=== PATIENT | female | born 1950 | race Two or more races ===

== ENCOUNTER 2017-04-20 16:23 | Emergency (ER) | payer MEDICAID, MEDICARE, OTHER ==
[~2017-04-20] VITALS: Ht 154.9 cm; Wt 135.2 kg
[2017-04-20 16:51] VITALS: BP 161/68
== END 2017-04-20 17:18 | disposition home or self-care (01) ==
LOC: ER 16:31
DX: H11.002 Unspecified pterygium of left eye (principal); E11.9 Type 2 diabetes mellitus without complications; I10 Essential (primary) hypertension

== ENCOUNTER 2017-05-20 19:34 | Emergency (ER) | payer OTHER ==
[~2017-05-20] VITALS: Ht 154.9 cm; Wt 132.0 kg
[2017-05-20 19:47] VITALS: BP 182/77
[2017-05-20 20:20] LABS: Basophils # (auto) 0.1 uL; Basophils % (auto) 0.9 % (0.0-2.0); CONDITION Y; Eosinophils # (auto) 0.1 uL; Eosinophils % (auto) 1.5 % (0.0-7.0); Hematocrit 41.4 % (36.0-46.0); Hemoglobin 13.9 g/dL (12.2-16.2); Lymphocytes # (auto) 1.7 uL; Lymphocytes % (auto) 29.1 % (10.0-50.0); Mean Corpuscular Hemoglobin 29.6 pg (28.0-32.0); Mean Corpuscular Hgb Conc. 33.7 g/dL (32.0-36.0); Mean Corpuscular Volume 87.9 fL (80.0-100.0); Mean Platelet Volume 10.3 fL (7.4-10.4); Monocytes # (auto) 0.7 uL; Monocytes % (auto) 12.2 % (0.0-12.0); Neutrophils # (auto) 3.2 uL; Neutrophils % (auto) 56.3 % (37.0-80.0); Platelet Count (auto) 247 10^3/uL (140-450); Red Cell Distribution Width 14.4 % (11.6-16.0); SUSPECT SEE PRINTOUT; White Blood Cell 5.7 10^3/uL (4.4-10.8)
[2017-05-20 20:46] LABS: Albumin 3.7 g/dL (3.4-5.0); Anion Gap 10 (5-15); Aspartate Aminotransferase 34 U/L (15-37); BUN/Creatinine Ratio 20.5; Blood Urea Nitrogen 15 mg/dL (7-18); Calcium 9.1 mg/dL (8.5-10.1); Carbon Dioxide 22 mmol/L (21-32); Chloride 108 mmol/L (98-107); GFR African American 102 mL/min; GFR Non-African American 85 mL/min; Glucose 171 mg/dL (74-106); Magnesium 2.1 mg/dL (1.6-2.6); Potassium 3.7 mmol/L (3.5-5.1); Sodium 140 mmol/L (136-145)
[2017-05-20 20:50] LABS: Alkaline Phosphatase 127 U/L (45-117); Bilirubin, Total 0.4 mg/dL (0.2-1.0); Total Protein 8.4 g/dL (6.4-8.2)
[2017-05-20 21:24] LABS: INR 0.98 (0.9-1.15); Partial Thromboplastin Time 34.3 sec (22.64-33.71); Prothrombin Time 10.7 sec (9.37-12.3)
[2017-05-20 21:51] LABS: B-Type Natriuretic Peptide 60.61 pg/mL (0-100)
[2017-05-20 21:57] LABS: Temperature: 23.5 C (20.0-25.0)
== END 2017-05-20 21:45 | disposition left against medical advice (07) ==
LOC: ER 19:38
DX: R06.02 Shortness of breath (principal); Z53.21 Procedure and treatment not carried out due to patient leaving prior to being seen by health care provider
CPT/HCPCS: 36415; 71020; 80053; 83735; 83880; 84484; 85025; 85610; 85730; 86141; 93005

== ENCOUNTER 2017-05-21 10:42 | Emergency (ER) | payer OTHER, MEDICAID ==
[~2017-05-21] VITALS: Ht 154.9 cm; Wt 132.0 kg
[2017-05-21 11:37] LABS: Basophils # (auto) 0 uL; Basophils % (auto) 0.6 % (0.0-2.0); CONDITION Y; Eosinophils # (auto) 0.1 uL; Eosinophils % (auto) 1.9 % (0.0-7.0); Hematocrit 41.1 % (36.0-46.0); Hemoglobin 13.9 g/dL (12.2-16.2); Lymphocytes # (auto) 1.3 uL; Lymphocytes % (auto) 32.7 % (10.0-50.0); Mean Corpuscular Hemoglobin 29.9 pg (28.0-32.0); Mean Corpuscular Hgb Conc. 33.9 g/dL (32.0-36.0); Mean Corpuscular Volume 88.3 fL (80.0-100.0); Mean Platelet Volume 10.1 fL (7.4-10.4); Monocytes # (auto) 0.6 uL; Monocytes % (auto) 14.3 % (0.0-12.0); Neutrophils # (auto) 2.1 uL; Neutrophils % (auto) 50.5 % (37.0-80.0); Platelet Count (auto) 227 10^3/uL (140-450); Red Cell Distribution Width 14.7 % (11.6-16.0); SUSPECT SEE PRINTOUT; White Blood Cell 4.1 10^3/uL (4.4-10.8)
[2017-05-21 11:45] LABS: Albumin 3.7 g/dL (3.4-5.0); Alkaline Phosphatase 118 U/L (45-117); Anion Gap 8 (5-15); Aspartate Aminotransferase 35 U/L (15-37); BUN/Creatinine Ratio 17.9; Bilirubin, Total 0.5 mg/dL (0.2-1.0); Blood Urea Nitrogen 12 mg/dL (7-18); Carbon Dioxide 22 mmol/L (21-32); Chloride 108 mmol/L (98-107); GFR African American 113 mL/min; GFR Non-African American 93 mL/min; Glucose 178 mg/dL (74-106); Potassium 3.6 mmol/L (3.5-5.1); Sodium 138 mmol/L (136-145); Total Protein 8.2 g/dL (6.4-8.2)
[2017-05-21 12:30] LABS: B-Type Natriuretic Peptide 42.08 pg/mL (0-100)
[2017-05-21 12:41] LABS: Temperature: 24.6 C (20.0-25.0)
[2017-05-21 13:04] VITALS: BP 181/93
[2017-05-21] MEDS ORDERED: cefTRIAXone W LIDOCAINE 1 GM IM IM ONE (13:15)
== END 2017-05-21 14:21 | disposition home or self-care (01) ==
LOC: ER 10:42
DX: J18.9 Pneumonia, unspecified organism (principal); E11.9 Type 2 diabetes mellitus without complications; I10 Essential (primary) hypertension
CPT/HCPCS: 36415; 71020; 80053; 83880; 84484; 85025; 85379; 93005; 96372; 99285; J0696

== ENCOUNTER 2017-12-08 01:19 | Emergency (ER) | payer OTHER, MEDICAID ==
[~2017-12-08] VITALS: Ht 152.4 cm; Wt 131.1 kg
[2017-12-08 02:43] LABS: Basophils # (auto) 0 uL; Basophils % (auto) 0.6 % (0.0-2.0); Eosinophils # (auto) 0.2 uL; Eosinophils % (auto) 3.1 % (0.0-7.0); Hematocrit 39.6 % (36.0-46.0); Hemoglobin 12.9 g/dL (12.2-16.2); Mean Corpuscular Hgb Conc. 32.6 g/dL (32.0-36.0); Mean Corpuscular Volume 85.9 fL (80.0-100.0); Monocytes # (auto) 0.5 uL; Monocytes % (auto) 8.8 % (0.0-12.0); Neutrophils # (auto) 3.4 uL; Neutrophils % (auto) 55.5 % (37.0-80.0); Nucleated Red Blood Cells % 0.3 %; Platelet Count (auto) 246 10^3/uL (140-450); Red Blood Cells 4.61 10^6/uL (4.0-5.20); Red Cell Distribution Width 14.5 % (11.8-14.3); White Blood Cell 6.2 10^3/uL (4.4-10.8)
[2017-12-08 02:44] LABS: Partial Thromboplastin Time 33.6 sec (22.64-33.71); Prothrombin Time 10.9 sec (9.37-12.3)
[2017-12-08 02:45] LABS: Alanine Aminotransferase 23 U/L (13-56); Albumin 3.8 g/dL (3.4-5.0); Anion Gap 7 (5-15); Aspartate Aminotransferase 27 U/L (15-37); BUN/Creatinine Ratio 26.6; Blood Urea Nitrogen 17 mg/dL (7-18); Calcium 10.1 mg/dL (8.5-10.1); Carbon Dioxide 27 mmol/L (21-32); Chloride 105 mmol/L (98-107); GFR African American 119 mL/min; GFR Non-African American 98 mL/min; Glucose 128 mg/dL (74-106); Potassium 4.3 mmol/L (3.5-5.1); Sodium 139 mmol/L (136-145)
[2017-12-08 02:49] LABS: Alkaline Phosphatase 125 U/L (45-117); Bilirubin, Total 0.3 mg/dL (0.2-1.0); Total Protein 8.1 g/dL (6.4-8.2)
[2017-12-08 09:04] VITALS: BP 148/70
== END 2017-12-08 09:08 | disposition home or self-care (01) ==
LOC: ER 01:19
DX: J40 Bronchitis, not specified as acute or chronic (principal); E11.9 Type 2 diabetes mellitus without complications; I10 Essential (primary) hypertension
CPT/HCPCS: 36415; 71046; 80053; 84484; 85025; 85610; 85730; 93005

== ENCOUNTER 2018-04-03 05:15 | Emergency (ER) | payer OTHER, MEDICAID ==
[~2018-04-03] VITALS: Ht 152.4 cm; Wt 135.2 kg
[2018-04-03 06:30] LABS: Albumin 3.8 g/dL (3.4-5.0); BUN/Creatinine Ratio 24.2; Calcium 9.9 mg/dL (8.5-10.1); Potassium 4.8 mmol/L (3.5-5.1)
[2018-04-03 06:33] LABS: Bilirubin, Total 0.7 mg/dL (0.2-1.0); Total Protein 8.2 g/dL (6.4-8.2)
[2018-04-03 06:48] LABS: Basophils # (auto) 0.1 uL; Basophils % (auto) 1.1 % (0.0-2.0); Eosinophils # (auto) 0.2 uL; Eosinophils % (auto) 3.5 % (0.0-7.0); Hematocrit 40.2 % (36.0-46.0); Hemoglobin 13.1 g/dL (12.2-16.2); Lymphocytes # (auto) 1.6 uL; Lymphocytes % (auto) 27.7 % (10.0-50.0); Mean Corpuscular Hemoglobin 29.3 pg (28.0-32.0); Mean Corpuscular Hgb Conc. 32.6 g/dL (32.0-36.0); Mean Corpuscular Volume 90.2 fL (80.0-100.0); Monocytes # (auto) 0.6 uL; Monocytes % (auto) 10.8 % (0.0-12.0); Neutrophils # (auto) 3.2 uL; Neutrophils % (auto) 56.9 % (37.0-80.0); Nucleated Red Blood Cells % 0.1 %; Platelet Count (auto) 206 10^3/uL (140-450); Red Blood Cells 4.46 10^6/uL (4.0-5.20); Red Cell Distribution Width 15.6 % (11.8-14.3); White Blood Cell 5.6 10^3/uL (4.4-10.8)
[2018-04-03] MEDS ORDERED: ONDANSETRON HCL 4 MG/2 ML VIAL IV ONE (07:00)
[2018-04-03] MEDS ORDERED: MORPHINE SULFATE 8mg/ml INJ SDV IV ONE (07:00)
[2018-04-03 08:13] VITALS: BP 154/55
[2018-04-03] MEDS ORDERED: HYDROcodone-ACET 10/325MG TAB PO ONE (08:45)
== END 2018-04-03 09:08 | disposition home or self-care (01) ==
LOC: ER 05:19
DX: I16.0 Hypertensive urgency (principal); J45.909 Unspecified asthma, uncomplicated; E11.9 Type 2 diabetes mellitus without complications; E07.89 Other specified disorders of thyroid; Z90.710 Acquired absence of both cervix and uterus; Z90.89 Acquired absence of other organs
CPT/HCPCS: 36415; 71045; 80053; 83880; 85025; 93005; 96374; 99285; J2405

== ENCOUNTER 2024-05-01 00:53 | Emergency (ER) | payer OTHER, MEDICAID ==
[~2024-05-01] VITALS: Ht 162.6 cm; Wt 132.8 kg
[2024-05-01 01:09] LABS: Basophils # (auto) 0 10 ^3/uL (0-0.2); Basophils % (auto) 0.5 % (0.0-2.0); Eosinophils # (auto) 0.2 10 ^3/uL (0-0.8); Eosinophils % (auto) 3.3 % (0.0-7.0); Hematocrit 43.6 % (36.0-46.0); Hemoglobin 14.3 g/dL (12.2-16.2); Lymphocytes # (auto) 2.2 10 ^3/uL (0.4-5.4); Lymphocytes % (auto) 29.4 % (10.0-50.0); Mean Corpuscular Hemoglobin 29.2 pg (28.0-32.0); Mean Corpuscular Hgb Conc. 32.7 g/dL (32.0-36.0); Mean Corpuscular Volume 89.3 fL (80.0-100.0); Monocytes # (auto) 0.7 10 ^3/uL (0-1.3); Neutrophils # (auto) 4.3 10 ^3/uL (1.6-8.6); Neutrophils % (auto) 57.8 % (37.0-80.0); Nucleated Red Blood Cells % 0.2 %; Red Blood Cells 4.88 10^6/uL (4.0-5.20); Red Cell Distribution Width 14.8 % (11.8-14.3); White Blood Cell 7.4 10^3/uL (4.4-10.8)
[2024-05-01 01:23] LABS: INR 1.02 (0.9-1.15); Partial Thromboplastin Time 34.6 SEC (24.5-34.5); Prothrombin Time 10.8 sec (9.3-11.8)
[2024-05-01 01:28] LABS: Albumin 4.6 g/dL (3.2-4.8); Alkaline Phosphatase 122 U/L (46-116); Anion Gap 7 (5-15); Aspartate Aminotransferase 11 U/L (13-40); BUN/Creatinine Ratio 20.5 (10.0-20.0); Blood Urea Nitrogen 15 mg/dL (9-23); Calcium 11.5 mg/dL (8.7-10.4); Carbon Dioxide 24 mmol/L (20-30); Chloride 107 mmol/L (98-107); Glucose 134 mg/dL (74-106); Magnesium 1.7 mg/dL (1.6-2.6); Sodium 138 mmol/L (136-145); Total Protein 7.7 g/dL (5.7-8.2)
[2024-05-01 01:29] LABS: Alanine Aminotransferase < 9 U/L (7-40)
[2024-05-01 02:06] LABS: Urine Bacteria None Seen /hpf (None Seen)
[2024-05-01 02:18] LABS: Urine Blood Negative /uL (Negative); Urine Clarity Clear (Clear); Urine Color Light-Yellow (Yellow); Urine Mucus FEW (None Seen); Urine Protein, UAD Negative (Negative); Urine Specific Gravity 1.018 (1.001-1.035); Urine Urobilinogen Normal (Negative); Urine WBC 4 /hpf (0 - 5)
[2024-05-01 03:40] VITALS: BP 160/84; PULSE 89; RESP 15; TEMP 97.2; O2SAT 91
== END 2024-05-01 03:46 | disposition home or self-care (01) ==
LOC: ER 00:53
DX: R07.89 Other chest pain (principal); J45.909 Unspecified asthma, uncomplicated; E11.9 Type 2 diabetes mellitus without complications; E78.5 Hyperlipidemia, unspecified; I10 Essential (primary) hypertension; Z90.710 Acquired absence of both cervix and uterus
CPT/HCPCS: 36415; 71045; 80053; 81001; 83735; 83880; 84484; 85025; 85610; 85730; 93005

== ENCOUNTER 2025-05-25 23:59 | Inpatient (IN) | payer OTHER, MEDICAID ==
[~2025-05-25] VITALS: Ht 149.9 cm; Wt 139.8 kg
[2025-05-26] VITALS (11 sets, daily range): BP systolic 93–121; BP diastolic 53–72; PULSE 58–109; RESP 16–22; TEMP 97.7–98.8; O2SAT 92–99
--- NOTE | 2025-05-26 00:24 | ED.PDOC ---
HPI Comments 74 year old female presents to the ED with a chief complaint of chest pain onset 45 minutes prior to ED arrival. Patient states she was sleeping, woke up to use restroom and began experiencing chest pain, described as a pressure sensation, rates pain 8/10. Patient took 3- 81 mg Aspirin tabs with no relief of symptoms. Upon ED arrival, EKG was done, showed patient is in a-fib, RVR with HR 138. PMHx COPD, HTN, HLD, DM, asthma, thyroid disease. Denies palpitations,shortness of breath, dizziness, headache, nausea, vomiting, diarrhea, fever, chills. No other associated symptoms, modifiers, recent injuries or sick contacts present at this time. Chief Complaint: Chest Pain Time Seen by MD: 00:10 Primary Care Provider: DR MARTINEZ Reviewed Notes: Medications, Allergies Allergies: Coded Allergies: NO KNOWN ALLERGIES (Unverified , 04/20/17) Information Source: Patient Mode of Arrival: Ambulatory Severity: Moderate Timing: Minutes Duration: Since onset Prehospital treatment: Other (aspirin 3 - 81 mg tabs) Location: Chest (L) Radiation: No Radiation Quality: Pressure Onset: At Rest Cardiac Risk Factors: Hyperlipidemia, HTN, Diabetes PE Risk Factors: None History of: Similar pain in past Modifying Factors: Nothing Past Medical History PAST MEDICAL HISTORY: Asthma, COPD, DM, Gallstones, High Lipids, HTN, Thyroid Surgical History: Hysterectomy, Thyroidectomy MANAGER POWER History: No Pertinent MANAGER POWER History Family History Family History: Unknown Social History Smoker: Non-Smoker Alcohol: Denies ETOH Use Drugs: Denies Drug Use Lives In: Home Constitutional: denies: chills, diaphoresis, fatigue, fever, malaise, sweats, weakness, others EENTM: denies: blurred vision, double vision, ear bleeding, ear discharge, ear drainage, ear pain, ear ringing, eye pain, eye redness, hearing loss, mouth pain, mouth swelling, nasal discharge, nose bleeding, nose congestion, nose pain, photophobia, tearing, throat pain, throat swelling, voice changes, others Respiratory: denies: cough, hemoptysis, orthopnea, SOB at rest, shortness of breath, SOB with excertion, stridor, wheezing, others Cardiovascular: reports: chest pain; denies: dizzy spells, diaphoresis, Dyspnea on exertion, edema, irregular heart beat, left arm pain, lightheadedness, palpitations, PND, syncope, others Gastrointestinal: denies: abdomen distended, abdominal pain, blood streaked bowels, constipated, diarrhea, dysphagia, difficulty swallowing, hematemesis, melena, nausea, poor appetite, poor fluid intake, rectal bleeding, rectal pain, vomiting, others Genitourinary: denies: abnormal vagina bleeding, burning, dyspareunia, dysuria, flank pain, frequency, hematuria, incontinence, pain, , vagina discharge, urgency, others Neurological: denies: dizziness, fainting, headache, left sided numbness, left sided weakness, numbness, paresthesia, pre-existing deficit, right sided numbness, right sided weakness, seizure, speech problems, tingling, tremors, weakness, others Musculoskeletal: denies: back pain, gout, joint pain, joint swelling, muscle pain, muscle stiffness, neck pain, others Integumetry: denies: bruises, change in color, change in hair/nails, dryness, laceration, lesions, lumps, rash, wounds, others Allergic/Immunocompromised: denies: Difficulty Healing, Frequent Infections, Hives, Itching, others Hematologic/Lymphatic: denies: anemia, blood clots, easy bleeding, easy bruising, swollen glands, others Endocrine: denies: excessive hunger, excessive sweating, excessive thirst, excessive urination, flushing, intolerance to cold, intolerance to heat, unexplained weight gain, unexplained weight loss, others Psychiatric: denies: anxiety, bipolar disorder, depression, hopeless, panic disorder, schizophrenia, sleepless, suicidal, others All Other Systems: Reviewed and Negative Physical Exam General Appearance: Normal HEENT: Normal ENT Inspection, Pharynx Normal, TMs Normal Neck: Full Range of Motion, Non-Tender, Normal, Normal Inspection Respiratory: Chest Non-Tender, Lungs Clear, No Accessory Muscle Use, No Respiratory Distress, Normal Breath Sounds Cardiovascular: No Edema, No JVD, No Murmur, No Gallop, Normal Peripheral Puls es, Regular Rate/Rhythm Breast Exam: Deferred Gastrointestinal: No Organomegaly, Non Tender, No Pulsatile Mass, Normal Bowel Sounds, Soft Genitalia: Deferred Pelvic: Deferred Rectal: Deferred Extremities: No calf tenderness, Normal capillary refill, Normal inspection, Normal range of motion, Non-tender, No pedal edema Musculoskeletal : Apperance: Normal Neurologic: Alert, supervisor histology II-XII nml as Tested, No Motor Deficits, Normal Affect, Normal Mood, No Sensory Deficits Cerebellar Function: Normal Reflexes: Normal Skin: Dry, Normal Color, Warm Lymphatic: No Adenopathy Was a procedure done? Was a procedure done?: No CP Differential Dx Differential Diagnosis: Angina, Hyperthyroidism, Hyperventilation, MAT, SD, PSVT, Pulmonary Embolus, V-Fib, V-Tach, Other X-Ray, Labs, Meds, VS Vital Signs Date Time Temp Pulse Resp B/P (MAP) Pulse Ox O2 Delivery O2 Flow Rate FiO2 05/26/25 02:20 90 23 108/48 (68) 95 05/26/25 02:05 99 18 97/56 05/26/25 01:37 111 111/69 05/26/25 01:35 118 20 111/69 05/26/25 01:29 111 111/69 05/26/25 01:26 92 110/59 05/26/25 01:17 109 20 92 Nasal Cannula* 2 28 05/26/25 01:08 115 20 110/59 05/26/25 00:59 107 05/26/25 00:38 105 20 135/81 05/26/25 00:37 105 135/81 05/26/25 00:29 118 135/81 05/26/25 00:26 105 135/81 05/26/25 00:20 97.6 125 17 135/81 (99) 93 97.6 05/26/25 00:07 97.6 128 18 139/78 93 97.6 05/26/25 00:04 138 Lab Test 05/26/25 01:10 05/26/25 00:19 Range/Units Troponin I High Sensitivity 16 15 </=34 ng/L White Blood Count 8.0 4.4-10.8 10^3/uL Red Blood Count 4.84 4.0-5.20 10^6/uL Hemoglobin 14.6 12.2-16.2 g/dL Hematocrit 43.3 36.0-46.0 % Mean Corpuscular Volume 89.5 80.0-100.0 fL Mean Corpuscular Hemoglobin 30.3 28.0-32.0 pg Mean Corpuscular Hemoglobin Concent 33.8 32.0-36.0 g/dL Red Cell Distribution Width 14.3 11.8-14.3 % Platelet Count 239 140-450 10^3/uL Mean Platelet Volume 9.4 6.9-10.8 fL Neutrophils (%) (Auto) 50.0 37.0-80.0 % Lymphocytes (%) (Auto) 36.9 10.0-50.0 % Monocytes (%) (Auto) 9.5 0.0-12.0 % Eosinophils (%) (Auto) 3.3 0.0-7.0 % Basophils (%) (Auto) 0.3 0.0-2.0 % Neutrophils # (Auto) 4.0 1.6-8.6 10 ^3/uL Lymphocytes # (Auto) 3.0 0.4-5.4 10 ^3/uL Monocytes # (Auto) 0.8 0-1.3 10 ^3/uL Eosinophils # (Auto) 0.3 0-0.8 10 ^3/uL Basophils # (Auto) 0 0-0.2 10 ^3/uL Nucleated Red Blood Cells 0.3 % Prothrombin Time 10.8 9.3-11.8 sec Prothrombin Time INR 1.02 0.9-1.15 Activated Partial Thromboplast Time 35.3 H 24.5-34.5 SEC Sodium Level 139 136-145 mmol/L Potassium Level 4.0 3.5-5.1 mmol/L Chloride Level 105 98-107 mmol/L Carbon Dioxide Level 26 20-31 mmol/L Anion Gap 8 5-15 Blood Urea Nitrogen 15 9-23 mg/dL Creatinine 0.61 0.550-1.02 mg/dL Glomerular Filtration Rate Calc 93 >90 mL/min BUN/Creatinine Ratio 24.6 H 10.0-20.0 Serum Glucose 142 H 74-106 mg/dL Calcium Level 10.8 H 8.7-10.4 mg/dL Total Bilirubin 1.1 H 0.2-1.0 mg/dL Aspartate Amino Transferase (AST) 21 13-40 U/L Alanine Aminotransferase (ALT) < 9 7-40 U/L Alkaline Phosphatase 110 46-116 U/L B-Type Natriuretic Peptide 131.81 0-100 pg/mL Total Protein 7.5 5.7-8.2 g/dL Albumin 4.6 3.2-4.8 g/dL Current Medications Medications (Trade) Dose Ordered Sig/Fahad Route Start Time Stop Time Status Last Admin Metoprolol Tartrate (Lopressor) 5 mg Q5M IV 05/26/25 00:15 05/26/25 00:26 DC 05/26/25 00:37 Morphine Sulfate 4 mg ONCE ONCE IV 05/26/25 00:30 05/26/25 00:31 DC 05/26/25 00:38 Ondansetron HCl (Zofran) 4 mg ONCE ONCE IV 05/26/25 00:30 05/26/25 00:31 DC 05/26/25 00:28 Morphine Sulfate 4 mg ONCE STAT IV 05/26/25 01:29 05/26/25 01:31 DC 05/26/25 01:35 [place] [id number] Ph: [phone] DIAGNOSTIC IMAGING Diagnostic Imaging Report : [id number] Signed PATIENT: JEANCARLOS SHARPACCT: [id number] UNIT: [id number] : 1950 LOC: ER ROOM / BED: / AGE / SEX: 74 / F ADM STATUS: REG ER SERVICE ORDERING PHYSICIAN: GEREMIAS BALDWIN MD PROCEDURE(s): CXRP - CHEST PORTABLE REASON: chest pain ORDER NUMBER(s): [id number], ACCESSION NUMBER(s): [id number] CHEST RADIOGRAPH Indication: chest pain Technique: Single frontal view of the chest was obtained COMPARISON: XY CHEST PORTABLE on DOS: 05/01/24 FINDINGS: Lines and Tubes: None Lungs: Moderate diffuse increased prominence of the pulmonary vasculature. No evidence of focal consolidation. Pleura: No effusion. No pneumothorax. Cardiomediastinal contours: Cardiomegaly. Bones: Unremarkable IMPRESSION: 1. Cardiomegaly and moderate diffuse increased prominence of the pulmonary vasculature. ATED BY: RASHEED STRINGER MD DICTATED DATE/TIME: 05/26/2556 SIGNED BY: RASHEED STRINGER MD SIGNED DATE/TIME: 05/26/2556 CC: Time of 1ST Reevaluation: 00:40 Reevaluation 1ST: Unchanged Patient Education/Counseling: Diagnosis, Treatment, Prognosis Family Education/Counseling: No Family Present Additional Information The following tests were ordered, and results were reviewed by me: TROP -x3, EKG-x3, CBC, XY CHEST, CMP, PTPTT, BNP I reviewed and agreed with the following test results read by other providers: XY CHEST I discussed treatment and results with medical personnel and: patient Comprehensive systems review obtained and negative except for what is stated in the HPI. SEPSIS Sepsis Screen Date sepsis recognized/suspect: May 26, 2025 Time Sepsis recognized/suspect: 0000 Recent Procedure: No On Antibiotic Therapy: No Respiratory Rate >20: No Heart Rate >90: Yes Temp<36 C (96.8 F) or >38.3 C: No SBP <90 or MAP <65 mmHG: No New Acute Mental Status Change: No Is the patient on CPAP, BIPAP,: No Physician Orders Troponin-I Hs (05/26/25 03:01) Electrocardigram (05/26/25 01:01) Electrocardigram (05/26/25 03:01) Chest Portable (05/26/25 00:07) Order Desk Caller (05/26/25 00:07) Ondansetron Hcl (Zofran) (05/26/25 02:45) Vital Signs Date Time Temp Pulse Resp B/P (MAP) Pulse Ox O2 Delivery O2 Flow Rate FiO2 05/26/25 02:20 90 23 108/48 (68) 95 05/26/25 02:05 99 18 97/56 05/26/25 01:37 111 111/69 05/26/25 01:35 118 20 111/69 05/26/25 01:29 111 111/69 05/26/25 01:26 92 110/59 05/26/25 01:17 109 20 92 Nasal Cannula* 2 28 05/26/25 01:08 115 20 110/59 05/26/25 00:59 107 05/26/25 00:38 105 20 135/81 05/26/25 00:37 105 135/81 05/26/25 00:29 118 135/81 05/26/25 00:26 105 135/81 05/26/25 00:20 97.6 125 17 135/81 (99) 93 97.6 05/26/25 00:07 97.6 128 18 139/78 93 97.6 05/26/25 00:04 138 Laboratory Tests Test 05/26/25 00:19 White Blood Count 8.0 10^3/uL (4.4-10.8) Medications Medications Dose Ordered Sig/Fahad Route Start Time Stop Time Status Last Admin Dose Admin Metoprolol Tartrate 5 mg Q5M IV 05/26/25 00:15 05/26/25 00:26 DC 05/26/25 00:37 Morphine Sulfate 4 mg ONCE ONCE IV 05/26/25 00:30 05/26/25 00:31 DC 05/26/25 00:38 Morphine Sulfate 4 mg ONCE STAT IV 05/26/25 01:29 05/26/25 01:31 DC 05/26/25 01:35 Ondansetron HCl 4 mg ONCE ONCE IV 05/26/25 00:30 05/26/25 00:31 DC 05/26/25 00:28 Departure 1 Departure Time of Disposition: 02:42 Impression: Primary Impression: Chest pain Disposition: 01 HOME / SELF CARE / HOMELESS Condition: Stable Discharged With: Self Critical Care Note Critical Care Time?: No Stability Stability form required: No Heart Score Heart Score: Heart Score Response (Comments) Value History Slightly Suspicious 0 EKG Normal 0 Age >65 2 Risk Factors 1 or 2 risk factors 1 Troponin Normal limit 0 Total 3 I personally scribed for GEREMIAS BALDWIN MD ([email or web address]) on 05/26/25 at 00:24. Electronically submitted by Sarah Murphy ([email or web address]). I personally scribed for GEREMIAS BALDWIN MD ([email or web address]) on 05/26/25 at 00:25. Electronically submitted by Sarah Murphy ([email or web address]). I personally scribed for GEREMIAS BALDWIN MD ([email or web address]) on 05/26/25 at 01:04. Electronically submitted by Sarah Murphy ([email or web address]). GEREMIAS BALDWIN MD May 26, 2025 00:24
[2025-05-26] MEDS: METOPROLOL TARTRATE 1MG/1ML-5ML VIAL IV SCH (00:26)
[2025-05-26] MEDS: ONDANSETRON HCL 4 MG/2 ML VIAL IV ONE ×3 (00:28→08:44)
[2025-05-26] MEDS: MORPHINE SULFATE 4 MG/ML SYR/VIAL IV ONE (00:38)
[2025-05-26 00:42] LABS: Hematocrit 43.3 % (36.0-46.0); Hemoglobin 14.6 g/dL (12.2-16.2); Mean Corpuscular Hemoglobin 30.3 pg (28.0-32.0); Mean Corpuscular Volume 89.5 fL (80.0-100.0); Nucleated Red Blood Cells % 0.3 %
[2025-05-26 00:54] LABS: Albumin 4.6 g/dL (3.2-4.8); Alkaline Phosphatase 110 U/L (46-116); Anion Gap 8 (5-15); BUN/Creatinine Ratio 24.6 (10.0-20.0); Bilirubin, Total 1.1 mg/dL (0.2-1.0); Blood Urea Nitrogen 15 mg/dL (9-23); Carbon Dioxide 26 mmol/L (20-31); Chloride 105 mmol/L (98-107); Potassium 4.0 mmol/L (3.5-5.1); Sodium 139 mmol/L (136-145); Total Protein 7.5 g/dL (5.7-8.2)
[2025-05-26 00:55] LABS: INR 1.02 (0.9-1.15); Partial Thromboplastin Time 35.3 SEC (24.5-34.5); Prothrombin Time 10.8 sec (9.3-11.8)
[2025-05-26 00:58] LABS: Alanine Aminotransferase < 9 U/L (7-40); Calcium 10.8 mg/dL (8.7-10.4); Glucose 142 mg/dL (74-106)
--- NOTE | 2025-05-26 00:59 | DVH ---
CHEST RADIOGRAPH Indication: chest pain Technique: Single frontal view of the chest was obtained COMPARISON: XY CHEST PORTABLE on DOS: 05/01/24 FINDINGS: Lines and Tubes: None Lungs: Moderate diffuse increased prominence of the pulmonary vasculature. No evidence of focal cons olidation. Pleura: No effusion. No pneumothorax. Cardiomediastinal contours: Cardiomegaly. Bones: Unremarkable IMPRESSION: 1. Cardiomegaly and moderate diffuse increased prominence of the pulmonary vasculature.
[2025-05-26] MEDS: MORPHINE SULFATE 4 MG/ML SYR/VIAL IV STA (01:35)
--- NOTE | 2025-05-26 02:35 | ECG ---
[facility] Test Date: 2025-05-26 Test Time: 00:59:00 Pat Name: JEANCARLOS SHARP Department: ED Room: [address] [place] [address] Gender: F Power Manager: HAYLEY : 1950 Requested By: GEREMIAS BALDWIN Order Number: [id number] Reading MD: Anthony Khan Measurements Intervals [place] Rate: 107 P: 0 AK: 0 QRS: -11 QRSD: 89 T: 110 QT: 347 QTc: 463 Interpretive Statements Atrial fibrillation LVH with secondary repolarization abnormality Electronically Signed On 05-26-2025 11:21:09 PDT by Anthony Khan Please click the below link to view image of tracing.
--- NOTE | 2025-05-26 03:06 | ECG ---
[facility] Test Date: 2025-05-26 Test Time: 03:00:09 Pat Name: JEANCARLOS SHARP Department: ED Room: [address] [place] [address] Gender: F New Car Inspector: HAYLEY : 1950 Requested By: GEREMIAS BALDWIN Order Number: [id number] Reading MD: Anthony Khan Measurements Intervals [place] Rate: 98 P: 0 MO: 0 QRS: -10 QRSD: 89 T: 118 QT: 347 QTc: 444 Interpretive Statements Atrial fibrillation LVH with secondary repolarization abnormality Electronically Signed On 05-26-2025 11:21:17 PDT by Anthony Khan Please click the below link to view image of tracing.
[2025-05-26] MEDS: PROCHLORPERAZINE EDISYLATE 5 MG/ML 2ML VIAL IV STA (03:31)
[2025-05-26] MEDS: PANTOPRAZOLE 40 MG TAB PO ONE (04:17)
--- NOTE | 2025-05-26 04:23 | DVHHPRES ---
History of Present Illness Resident Creating Document: HEMANT SHOOK RESIDENT History of Present Illness Sonja Weinberg is a 74-year-old female with past medical history of COPD, hypertension, hyperlipidemia, type 2 diabetes, asthma, and hypothyroidism who presents to the EDt with complaints of 4 hrs of the start of sub-sternal chest pain 10/10, pressure like, irradiate to the left and right shoulders, associated with chest palpitations, lightheadedness, SOB, cold sweat and nausea. The patient reported that she had this pain before, on and off for the past week that improved with rest and aspiring 81 mg. Today, the chest pain did not subside with aspirin, this prompt her visit to the ED. Initial EKG noted atrial fibrillation with rapid ventricular response. She received three doses of IV Lopressor 5mg which improved her heart rate, but she continues to feel uncomfortable and remains in atrial fibrillation. Initial cardiac workup shows normal troponin levels. Given her presentation and risk factors, there is concern for acute coronary syndrome. Patient denies fever, chills, syncope, vomit or other symptoms. Cardiovascular: HTN, hyperipidemia Pulmonary: Asthma, COPD Psych: Anxiety Endocrine: Diabetes, Hyperthyroidism, Osteoporosis Past Surgical History: Hysterectomy (with bilateral oophorectomy), Other (Partial Thyroidectomy ) Smoke: Quit (Smoked 1 pack day for 11 years. Patient quit more than 30 years ago) ALCOHOL: none Drugs: None Lives: with Family Review of Systems Constitutional: No: Fever, Chills, Sweats, Weakness, Malaise, Other Eyes: No: Pain, Vision change, Conjunctivae inflammation, Eyelid inflammation, Other, Redness ENT: No: Ear pain, Ear discharge, Nose pain, Nose discharge, Nose congestion, Mouth pain, Mouth swelling, Throat pain, Throat swelling, Other Respiratory: Shortness of breath Cardiovascular: Chest Pain, Palpitations, Lt Headedness Gastrointestinal: No: Nausea, Vomiting, Abdominal Pain, Diarrhea, Constipation, Melena, Hematochezia, Other Genitourinary: No Dysuria, No Frequency, No Incontinence, No Hematuria, No Retention, No Other Musculoskeletal: No: other, neck pain, shoulder pain, arm pain, back pain, hand pain, leg pain, foot pain Skin: No: Rash, Lesions, Jaundice, Bruising, Other Neurological: No: Weakness, Numbness, Incoordination, Change in speech, Confusion, Seizures, Other Allergies: Coded Allergies: NO KNOWN ALLERGIES (Unverified , 04/20/17) Exam Vital Signs Vital Signs Date Time Temp Pulse Resp B/P (MAP) Pulse Ox O2 Delivery O2 Flow Rate FiO2 05/26/25 03:00 98 05/26/25 02:20 23 108/48 (68) 95 05/26/25 01:17 Nasal Cannula* 2 28 05/26/25 00:20 97.6 97.6 General Appearance: Alert, Oriented X3, Cooperative, mild distress HEENT: Atraumatic, PERRLA, Mucous membr. moist/pink Respiratory: Normal air movement, Other (mild bilateral crackles in lung bases ) Cardiovascular: Other (tachycardic, abnormal rhythm) Abdominal: Normal bowel sounds, Soft, No tenderness, No hepatospenomegaly, No masses Extremities: No clubbing, No cyanosis, No edema, Normal pulses, No tenderness/swelling Skin: No rashes, No breakdown, No significant lesion Neuro: Normal speech, Normal tone, Sensation intact Psych/Mental Status: Mental status NL, Mood NL Labs/Xrays Labs Test 05/26/25 03:29 05/26/25 00:19 Range/Units Troponin I High Sensitivity 32 </=34 ng/L White Blood Count 8.0 4.4-10.8 10^3/uL Red Blood Count 4.84 4.0-5.20 10^6/uL Hemoglobin 14.6 12.2-16.2 g/dL Hematocrit 43.3 36.0-46.0 % Mean Corpuscular Volume 89.5 80.0-100.0 fL Mean Corpuscular Hemoglobin 30.3 28.0-32.0 pg Mean Corpuscular Hemoglobin Concent 33.8 32.0-36.0 g/dL Red Cell Distribution Width 14.3 11.8-14.3 % Platelet Count 239 140-450 10^3/uL Mean Platelet Volume 9.4 6.9-10.8 fL Neutrophils (%) (Auto) 50.0 37.0-80.0 % Lymphocytes (%) (Auto) 36.9 10.0-50.0 % Monocytes (%) (Auto) 9.5 0.0-12.0 % Eosinophils (%) (Auto) 3.3 0.0-7.0 % Basophils (%) (Auto) 0.3 0.0-2.0 % Neutrophils # (Auto) 4.0 1.6-8.6 10 ^3/uL Lymphocytes # (Auto) 3.0 0.4-5.4 10 ^3/uL Monocytes # (Auto) 0.8 0-1.3 10 ^3/uL Eosinophils # (Auto) 0.3 0-0.8 10 ^3/uL Basophils # (Auto) 0 0-0.2 10 ^3/uL Nucleated Red Blood Cells 0.3 % Prothrombin Time 10.8 9.3-11.8 sec Prothrombin Time INR 1.02 0.9-1.15 Activated Partial Thromboplast Time 35.3 H 24.5-34.5 SEC Sodium Level 139 136-145 mmol/L Potassium Level 4.0 3.5-5.1 mmol/L Chloride Level 105 98-107 mmol/L Carbon Dioxide Level 26 20-31 mmol/L Anion Gap 8 5-15 Blood Urea Nitrogen 15 9-23 mg/dL Creatinine 0.61 0.550-1.02 mg/dL Glomerular Filtration Rate Calc 93 >90 mL/min BUN/Creatinine Ratio 24.6 H 10.0-20.0 Serum Glucose 142 H 74-106 mg/dL Calcium Level 10.8 H 8.7-10.4 mg/dL Total Bilirubin 1.1 H 0.2-1.0 mg/dL Aspartate Amino Transferase (AST) 21 13-40 U/L Alanine Aminotransferase (ALT) < 9 7-40 U/L Alkaline Phosphatase 110 46-116 U/L B-Type Natriuretic Peptide 131.81 0-100 pg/mL Total Protein 7.5 5.7-8.2 g/dL Albumin 4.6 3.2-4.8 g/dL SEPSIS Sepsis Screen Date sepsis recognized/suspect: May 26, 2025 Time Sepsis recognized/suspect: 0120 Recent Procedure: No On Antibiotic Therapy: No Respiratory Rate >20: No Heart Rate >90: No Temp<36 C (96.8 F) or >38.3 C: No SBP <90 or MAP <65 mmHG: No New Acute Mental Status Change: No Is the patient on CPAP, BIPAP,: No Physician Orders Electrocardigram (05/26/25 03:01) Chest Portable (05/26/25 00:07) Bleach Packer (05/26/25 00:07) Admit (05/26/25 03:44) Code Status (05/26/25 03:44) Vital Signs .PER UNIT PROTOCOL (05/26/25 03:44) Review Orders With Adm.Md (05/26/25 03:44) Maintain Bed Rest (05/26/25 03:44) Notify Md Of Changes From Base (05/26/25 03:44) Advance Directive (05/26/25 03:44) Echo 2d Mode Cardiac Dop (05/26/25 03:44) Urinalysis (05/26/25 03:44) Patient Condition (05/26/25 03:44) Allergies (05/26/25 03:44) Drug Screen (05/26/25 03:44) Morphine Sulfate Injection (05/26/25 03:45) Oxygen By Nasal Cannula (05/26/25 03:44) Stat Ekg For Chest Pain (05/26/25 03:44) Notify Md Of Changes From Base (05/26/25 03:44) Pillowcase Cutter For 24 Hours (05/26/25 03:44) Pantoprazole Tablet (Protonix Tablet) (05/26/25 03:45) * Cardiology Consult (05/26/25 03:44) Vital Signs Date Time Temp Pulse Resp B/P (MAP) Pulse Ox O2 Delivery O2 Flow Rate FiO2 05/26/25 03:00 98 05/26/25 02:20 90 23 108/48 (68) 95 05/26/25 02:05 99 18 97/56 05/26/25 01:37 111 111/69 05/26/25 01:35 118 20 111/69 05/26/25 01:29 111 111/69 05/26/25 01:26 92 110/59 05/26/25 01:17 109 20 92 Nasal Cannula* 2 28 05/26/25 01:08 115 20 110/59 05/26/25 00:59 107 05/26/25 00:38 105 20 135/81 05/26/25 00:37 105 135/81 05/26/25 00:29 118 135/81 05/26/25 00:26 105 135/81 05/26/25 00:20 97.6 125 17 135/81 (99) 93 97.6 05/26/25 00:07 97.6 128 18 139/78 93 97.6 05/26/25 00:04 138 Laboratory Tests Test 05/26/25 00:19 White Blood Count 8.0 10^3/uL (4.4-10.8) Medications Medications Dose Ordered Sig/Fahad Route Start Time Stop Time Status Last Admin Dose Admin Metoprolol Tartrate 5 mg Q5M IV 05/26/25 00:15 05/26/25 00:26 DC 05/26/25 00:37 5 MG Morphine Sulfate 4 mg ONCE ONCE IV 05/26/25 00:30 05/26/25 00:31 DC 05/26/25 00:38 4 MG Morphine Sulfate 4 mg ONCE STAT IV 05/26/25 01:29 05/26/25 01:31 DC 05/26/25 01:35 4 MG Ondansetron HCl 4 mg ONCE ONCE IV 05/26/25 00:30 05/26/25 00:31 DC 05/26/25 00:28 4 MG Ondansetron HCl 4 mg ONCE ONCE IV 05/26/25 02:45 05/26/25 02:46 DC 05/26/25 02:47 4 MG Prochlorperazine Edisylate 5 mg ONCE STAT IV 05/26/25 03:21 05/26/25 03:22 DC 05/26/25 03:31 5 MG Assessment/Plan Assessment/Plan #Atrial Fibrillation with Rapid Ventricular Response (new onset) Telemetry Metoprolol IV [id number] score: 3 Evaluate for antiplatelet agents. #Chest Pain likely due to ACS NSTEMI type 2 Troponins Aspirin ECHO Cardiac consult #Rule out CHF ECHO BNP # Acute on chronic COPD exacerbation #Asthma O2 for nasal canula Ceftriaxone IV Azitromicyn IV #Essential Hypertension Metoprolol IV #Hyperlipidemia Atorvastatin 40mg po #DM2 with hyperglycemia HbA1c #Hypothyroidism TSH Cardiac diet DVT prophylaxis PUD prophylaxis Protonic Goals of care discussed with the patient > 35 min. Discussed plan of care with Dr. Smith Code status: Full code PCP: Cannot recall the doctor's name Plan discussed with: Patient, patients agrees with the plan. Plan discussed with: Patient My Orders Orders - HEMANT SHOOK RESIDENT Procedure Category Date Status Time Admit ADMIT 05/26/25 Transmitted 03:44 Code Status CODE 05/26/25 Transmitted 03:44 Vital Signs [facility] 05/26/25 In Process 03:44 Review Orders With [facility] 05/26/25 In Process Adm. 03:44 Maintain Bed Rest [facility] 05/26/25 In Process 03:44 Notify Md Of Changes [facility] 05/26/25 In Process From Base 03:44 Advance Directive [facility] 05/26/25 In Process 03:44 Echo 2d Mode Cardiac US 05/26/25 Logged DOP 03:44 Urinalysis LAB 05/26/25 Logged 03:44 Patient Condition ORDERS 05/26/25 Transmitted 03:44 Allergies [facility] 05/26/25 In Process 03:44 Drug Screen LAB 05/26/25 Logged 03:44 Morphine Sulfate PHA 05/26/25 Logged Injection 03:45 Oxygen By Nasal RT 05/26/25 Transmitted Cannula 03:44 Stat Ekg For Chest [facility] 05/26/25 In Process Pain 03:44 Notify Md Of Changes [facility] 05/26/25 In Process From Base 03:44 Pillowcase Cutter For [facility] 05/26/25 In Process 24 Hours 03:44 Pantoprazole Tablet [facility] 05/26/25 Logged (Protonix Tablet) 03:45 * Cardiology Consult CONS 05/26/25 Transmitted 03:44 Common Visit Codes: [id number] INP/OBS CARE (HIGH) Secondary Visit Codes: [id number] CARE PLAN 30 MINUTES HEMANT SHOOK RESIDENT May 26, 2025 04:23
[2025-05-26] MEDS: AZITHROMYCIN 500MG/ 250ML 250 ML IV ONE (04:30)
[2025-05-26] MEDS: cefTRIAXone 1GM/50ML D5W 50 ML IV ONE (04:30)
[2025-05-26 05:23] LABS: Urine Protein, UAD 1+ (Negative)
[2025-05-26 05:30] LABS: Opiate Scree,Urine Neg (NEGATIVE)
[2025-05-26 05:34] LABS: Amphetamine Screen, Urine Neg (NEGATIVE); Barbiturate Scree,Urine Neg (NEGATIVE); Benzodiazephine Screen, Urine Neg (NEGATIVE); Cannabinoid Screen, Urine Neg (NEGATIVE); Cocaine Screen, Urine Neg (NEGATIVE); Phencyclidine Screen, Urine Neg (NEGATIVE)
[2025-05-26] MEDS: ONDANSETRON HCL 4 MG/2 ML VIAL IV SCH (06:00)
[2025-05-26] MEDS ORDERED: ATORVASTATIN 20 MG TAB PO ONE (07:45)
--- NOTE | 2025-05-26 09:26 | DVHINCON2 ---
Date Seen: May 26, 2025 Referring Physician MD Doc resident Reason for Consultation Atrial fibrillation History of Present Illness This is a Irish-speaking 74-year-old female patient who presents to the emergency room with chief complaint of chest palpitations and chest pressure since 11:00 p.m. last night. The patient states that she was trying to go to bed last night when suddenly she began to feel pressure and palpitations. She describes the event as unprovoked, chest pressure, constant, midsternal and nonradiating. Associated symptoms include shortness of breath. She came to the emergency room for further evaluation. Initial twelve lead electrocardiogram reveals atrial fibrillation with rapid ventricular response. The patient was given metoprolol 5 mg IV x 3 doses in the emergency room. At the time of assessment, the patient remains in atrial fibrillation, now with a controlled rate.Significant past medical history includes hypertension, dyslipidemia, COPD with home O2, thyroid disease, type 2 diabetes mellitus, and morbid obesity. The patient reports that she does have a car tester in the outpatient setting, but can not recall the name of the car tester at this time. Past Medical History Past medical history reviewed. No other significant than mentioned above. Past Surgical History Hysterectomy Bilateral Oophorectomy Family History Family history reviewed. Social History Patient has an 11 pack-year history, quit smoking over 30 years ago Denies any illicit drug use Denies any alcohol use Allergies: Coded Allergies: NO KNOWN ALLERGIES (Unverified , 04/20/17) Home Meds Home medications reviewed. Current Medications Current Medications Medications (Trade) Dose Ordered Sig/Fahad Route PRN Reason Start Time Stop Time Status Last Admin Metoprolol Tartrate (Lopressor) 5 mg Q5M IV 05/26/25 00:15 05/26/25 00:26 DC 05/26/25 00:37 Morphine Sulfate 4 mg ONCE STAT IV 05/26/25 01:29 05/26/25 01:31 DC 05/26/25 01:35 Prochlorperazine Edisylate (Compazine Inj) 5 mg ONCE STAT IV 05/26/25 03:21 05/26/25 03:22 DC 05/26/25 03:31 Morphine Sulfate 2 mg Q4HPRN PRN IV SEVERE PAIN (7-10 PAIN SCALE) 05/26/25 03:45 Furosemide (Lasix Injection) 40 mg DAILY IV 05/26/25 10:00 Ondansetron HCl (Zofran) 4 mg Q4HR IV 05/26/25 06:00 05/26/25 08:32 DC 05/26/25 06:00 Aspirin 81 mg DAILY PO 05/26/25 10:00 Atorvastatin Calcium (Lipitor) 40 mg HS PO 05/26/25 22:00 Ondansetron HCl (Zofran) 4 mg Q4HR PRN IV NAUSIA 05/26/25 08:30 Review of Systems Constitutional: No symptom reported Ears, Nose, & Throat: No symptom reported Eyes: No symptom reported Neurological: No symptoms reported Pulmonary/Respiratory: Shortness of breath Cardiovascular: Palpitations Gastrointestinal: No symptom reported Genitourinary: No symptom reported Musculoskeletal: No symptom reported Skin: No symptom reported Psychiatric: No symptom reported Endocrine: No symptom reported Hematologic/Lymphatic: No symptom reported Vital Signs Vital Signs Date Time Temp Pulse Resp B/P (MAP) Pulse Ox O2 Delivery O2 Flow Rate FiO2 05/26/25 08:00 93 05/26/25 07:03 18 97/51 (66) 94 05/26/25 01:17 Nasal Cannula* 2 28 05/26/25 00:20 97.6 97.6 Physical Exam General Appearance: Cooperative. Morbidly obese Pulmonary/Respiratory: Clear, bilateral breaths sounds. Cardiovascular/Chest: Irregularly irregular rate and rhythm. Peripheral Pulses: 2+ Radial (R). 2+ Radial (L). 2+ Pedal (R). 2+ Pedal (L) Abdominal Exam: Normal bowel sounds. Ankle Exam: Negative ankle edema Lower extremities: Negative lower extremity edema Neuro/Mental Status: A/OX4, coherent. Thoughts/Psych: Normal thought pattern. Appropriate mood and affect. Good judgment and insight. Appearance: No acute distress. Skin Exam: Normal inspection. Normal color. Warm and dry. Labs/Diagnostic Data Labs Test 05/26/25 07:45 05/26/25 06:27 05/26/25 05:00 05/26/25 03:29 Range/Units POC Glucose 158 H 70-106 mg/dl Urine Color Yellow Yellow Urine Clarity Clear Clear Urine pH 6.0 5.0-9.0 Urine Specific [place] 1.009 1.001-1.035 Urine Protein 1+ H Negative Urine Ketones Negative Negative Urine Blood Negative Negative /uL Urine Nitrite Negative Negative Urine Bilirubin Negative Negative Urine Urobilinogen Normal Negative mg/dL Urine Leukocyte Esterase Negative Negative /uL Urine RBC None seen 0 - 4 /hpf Urine Microscopic WBC 1 0-5 /HPF Urine Squamous Epithelial Cells Few <5 /hpf Urine Bacteria None seen None Seen /hpf Urine Glucose Normal Normal mg/dL Urine Opiates Screen Neg NEGATIVE Urine Fentanyl Screen Neg NEGATIVE Urine Barbiturates Screen Neg NEGATIVE Urine Phencyclidine Screen Neg NEGATIVE Urine Amphetamines Screen Neg NEGATIVE Urine Benzodiazepines Screen Neg NEGATIVE Urine Cocaine Screen Neg NEGATIVE Urine Cannabinoids Screen Neg NEGATIVE Troponin I High Sensitivity 32 </=34 ng/L Test 05/26/25 00:19 Range/Units White Blood Count 8.0 4.4-10.8 10^3/uL Red Blood Count 4.84 4.0-5.20 10^6/uL Hemoglobin 14.6 12.2-16.2 g/dL Hematocrit 43.3 36.0-46.0 % Mean Corpuscular Volume 89.5 80.0-100.0 fL Mean Corpuscular Hemoglobin 30.3 28.0-32.0 pg Mean Corpuscular Hemoglobin Concent 33.8 32.0-36.0 g/dL Red Cell Distribution Width 14.3 11.8-14.3 % Platelet Count 239 140-450 10^3/uL Mean Platelet Volume 9.4 6.9-10.8 fL Neutrophils (%) (Auto) 50.0 37.0-80.0 % Lymphocytes (%) (Auto) 36.9 10.0-50.0 % Monocytes (%) (Auto) 9.5 0.0-12.0 % Eosinophils (%) (Auto) 3.3 0.0-7.0 % Basophils (%) (Auto) 0.3 0.0-2.0 % Neutrophils # (Auto) 4.0 1.6-8.6 10 ^3/uL Lymphocytes # (Auto) 3.0 0.4-5.4 10 ^3/uL Monocytes # (Auto) 0.8 0-1.3 10 ^3/uL Eosinophils # (Auto) 0.3 0-0.8 10 ^3/uL Basophils # (Auto) 0 0-0.2 10 ^3/uL Nucleated Red Blood Cells 0.3 % Prothrombin Time 10.8 9.3-11.8 sec Prothrombin Time INR 1.02 0.9-1.15 Activated Partial Thromboplast Time 35.3 H 24.5-34.5 SEC Sodium Level 139 136-145 mmol/L Potassium Level 4.0 3.5-5.1 mmol/L Chloride Level 105 98-107 mmol/L Carbon Dioxide Level 26 20-31 mmol/L Anion Gap 8 5-15 Blood Urea Nitrogen 15 9-23 mg/dL Creatinine 0.61 0.550-1.02 mg/dL Glomerular Filtration Rate Calc 93 >90 mL/min BUN/Creatinine Ratio 24.6 H 10.0-20.0 Serum Glucose 142 H 74-106 mg/dL Calcium Level 10.8 H 8.7-10.4 mg/dL Total Bilirubin 1.1 H 0.2-1.0 mg/dL Aspartate Amino Transferase (AST) 21 13-40 U/L Alanine Aminotransferase (ALT) < 9 7-40 U/L Alkaline Phosphatase 110 46-116 U/L B-Type Natriuretic Peptide 131.81 0-100 pg/mL Total Protein 7.5 5.7-8.2 g/dL Albumin 4.6 3.2-4.8 g/dL Assessment Atrial fibrillation with rapid ventricular response, newly diagnosed Rule out structural heart disease Hypertension Dyslipidemia COPD with home O2 Type 2 diabetes mellitus Thyroid disease Morbid obesity Plan/Recommendation We will continue with the following plan/recommendations (Dr. Khan): * Transthoracic echocardiogram to evaluate cardiac function * ?[id number] VASc score: 5 points, HAS-BLED score: 1 point * Initiate therapeutic Lovenox while inpatient, transition to NOAC prior to discharge * Beta-isabel for rate control * Monitor and replete electrolytes as needed, keep potassium greater than four and magnesium greater than two * Close Cardiac surveillance At the time of assessment, the patient is not experiencing any cardiac symptoms. The patient does however mention some nausea. Thank you for allowing us to care for this patient. Please call with any questions or concerns. Critical care time spent: 44 minutes This medical document was created using an electronic medical record system with voice recognition software and computerized dictation system. Although this document has been carefully reviewed, there might still be some phonetic and typographical errors. Occasional wrong-word or ``sound-alike substitutions may have occurred due to the inherent limitations of voice recognition software. These areas are purely typographical due to imperfections of the software programs and do not reflect any compromise in the patient's medical care. Please read the chart carefully and recognize, using context, where these substitutions have occurred. Plan discussed with: Patient NYHA Physical activity limitations: NA Date of Service: May 26, 2025 Billing Provider: LUCRECIA BLUE Cardiology Common Codes: [id number] INP/OBS CARE (High) Cardiology Consultation Codes: [id number] CONSULT <45MIN LCURECIA BLUE May 26, 2025 09:26
[2025-05-26 09:58] LABS: COVID19 ANTIGEN SOFIA FIA NEGATIVE (NEGATIVE)
[2025-05-26 10:06] LABS: Triglycerides 121.0 mg/dL (< 150)
--- NOTE | 2025-05-26 10:06 | DVHPNRES ---
Progress Note Date Seen: May 26, 2025 Resident Creating Document: MIRANDA BACH RESIDENT Medical Necessity Reason Pt with a Central, PICC or Fol: No Subjective Review of Systems Sonja Cook is a 74-year-old female with past medical history of COPD, hypertension, hyperlipidemia, type 2 diabetes, asthma, and hypothyroidism presented to the ER with complaints of 4 hrs of sub-sternal chest pain 10/10, pressure like, which radiated to the left and right shoulders, associated with chest palpitations, lightheadedness, cold sweat and nausea. Also complained of associated shortness of breaths and difficulty breathing, which increase lying position. The patient reported that she had this pain before, on and off for the past week that improved with rest and aspiring 81 mg. The chest pain did not subside with aspirin, which prompted her visit to the ER. She denied fever, chills, syncope, vomit or other symptoms. On arrival, she had tachycardia, hypotension, tachypnea. Her initial labs show borderline increased calcium, total bilirubin, APTT. Her urine analysis is WNL and toxicology screen is negative. CXR shows cardiomegaly, moderate diffuse increased prominence of pulmonary vascular. EKG shows atrial fibrillation, left ventricular hypertrophy. Cardiac workup revealed normal troponin levels. She received three doses of IV Lopressor 5mg which improved her heart rate. ROS: Constitutional: Apparent distress, complained of chills. HEENT: Progressive reduction in vision. Respiratory: Shortness of breath and difficulty in breathing Cardiovascular: Chest pain, radiating to right shoulder GI: Complains of nausea, vomiting. Musculoskeletal: Denies myalgias and joint pain Skin: Denies rash and pruritus. Neurological: Denies dizziness, headache or hearing problems She was examined at bedside today. Her vitals show DE 99, blood pressure 97/51. Continues to complain of chest pain & difficulty in breathing. Associated with nausea and vomiting. She is in apparent discomfort. Cardiology consulted. Objective vital signs Vital Sign Date Time Temp Pulse Resp B/P (MAP) Pulse Ox O2 Delivery O2 Flow Rate FiO2 05/26/25 08:00 93 05/26/25 08:00 97.7 19 100/36 (57) 94 97.7 05/26/25 08:00 Nasal Cannula* 2 28 Total Intake and Output 05/25/25 05/25/25 05/26/25 15:00 23:00 07:00 Output Total 400 ml Balance -400 ml medications Current Medications Medications Dose Ordered Sig/Fahad Route Start Time Stop Time Status Last Admin Dose Admin Morphine Sulfate 2 mg Q4HPRN PRN IV 05/26/25 03:45 Furosemide 40 mg DAILY IV 05/26/25 10:00 Aspirin 81 mg DAILY PO 05/26/25 10:00 Atorvastatin Calcium 40 mg HS PO 05/26/25 22:00 Ondansetron HCl 4 mg Q4HR PRN IV 05/26/25 08:30 Examination General: Apparent discomfort. Patient alert and oriented in person, place and time. Patient following commands. HEENT: Normocephalic, atraumatic, moist mucous membranes Respiratory/pulmonary: Bilateral crackles on auscultation. Cardiovascular: Distant heart sounds. Abdomen: Abdomen nondistended, there is no pain to palpation in any of the abdominal quadrants, no palpable masses. Extremities: There is no peripheral edema present at the lower extremities. Skin: No rashes or pruritus, there is no sacral edema present at this time. Neurological: Intact cranial nerves with no focal neurologic deficits laboratory and microbiology Laboratory Tests 05/26/25 00:19 Test 05/26/25 00:19 Range/Units Serum Glucose 142 H 74-106 mg/dL Problem List/Assessment/Plan Problem List/Assessment/Plan Atrial Fibrillation with Rapid Ventricular Response (new onset) * Telemetry * Started Metoprolol IV * [id number] score: 3 * Started Lovenox Chest Pain likely due to ACS NSTEMI type 2 Systolic/ Diastolic congestive heart failure, exacerbation, possible * Troponins WNL * Aspirin given * ECHO ordered * Cardiology consulted * ECHO * BNP Acute hypoxic respiratory failure due to Acute on chronic COPD exacerbation, possible Asthma exacerbation, possible * O2 for nasal canula * Influenza and COVID-19 tests ordered * Ceftriaxone & Azitromicyn IV * Med neb started Essential Hypertension * Metoprolol IV Hyperlipidemia * Atorvastatin 40mg po Diabetes mellitus * Hyperglycemia OA * HbA1c * Will continue monitoring and managing History of Hypothyroidism * TSH DIET: Cardiac DVT PROPHYLAXIS: Lovenox GI PROPHYLAXIS: Protonics CODE STATUS: Goals of care discussed with patient at bedside for more than 25 minutes. Full code DISPOSITION: Med/surge Patient's status and plan discussed with the patient. Case discussed with Dr. Puri. Plan discussed with: Patient Date of Service: May 26, 2025 Billing Provider: LOIS PURI MD Common Visit Codes: [id number] INP/OBS CARE(HIGH) MIRANDA BACH RESIDENT May 26, 2025 10:06 LOIS PURI MD May 26, 2025 14:09
[2025-05-26 10:07] LABS: Magnesium 2.0 mg/dL (1.6-2.6)
[2025-05-26 10:08] LABS: Cholesterol 129.0 mg/dL (< 200); HDL Cholesterol 57.0 mg/dL (40-59)
[2025-05-26] MEDS: FUROSEMIDE 40 MG/4 ML VIAL IV SCH (10:48)
[2025-05-26] MEDS: IPRATROPIUM BROM 0.5 MG/2.5ML INH SOL ONE (11:49)
[2025-05-26] MEDS: IPRATROPIUM BROM 0.5 MG/2.5ML INH SOL NEB SCH (11:49)
[2025-05-26] MEDS: ENOXAPARIN SOD 100 MG/1 ML SYRINGE SC ONE (12:02)
[2025-05-26] MEDS: ONDANSETRON HCL 4 MG/2 ML VIAL IV PRN (13:50)
[2025-05-26] MEDS ORDERED: ASPI81CH59 PO (16:47)
[2025-05-26] MEDS ORDERED: TRAM50TA2 PO (16:47)
[2025-05-26] MEDS ORDERED: METF-370 PO (16:47)
[2025-05-26] MEDS ORDERED: METO25TA93 PO (16:47)
[2025-05-26] MEDS: ATORVASTATIN 20 MG TAB PO SCH (21:25)
[2025-05-26] MEDS: ENOXAPARIN SOD 100 MG/1 ML SYRINGE SC SCH (21:26)
[2025-05-26] MEDS ORDERED: METOPROLOL TARTRATE 25 MG TAB PO SCH (22:00)
[2025-05-27] VITALS (14 sets, daily range): BP systolic 92–126; BP diastolic 51–76; PULSE 64–124; RESP 16–19; TEMP 97.9–98.8; O2SAT 94–100
[2025-05-27] MEDS: MORPHINE SULFATE INJ 2 MG/ml SYRG IV PRN (00:52)
[2025-05-27 07:41] LABS: Chloride 104 mmol/L (98-107); Potassium 4.2 mmol/L (3.5-5.1); Sodium 138 mmol/L (136-145)
[2025-05-27 07:42] LABS: Anion Gap 7 (5-15); Carbon Dioxide 27 mmol/L (20-31)
[2025-05-27 07:43] LABS: Calcium 11.0 mg/dL (8.7-10.4)
[2025-05-27 07:46] LABS: Hematocrit 40.5 % (36.0-46.0); Hemoglobin 13.7 g/dL (12.2-16.2); Mean Corpuscular Hemoglobin 30.1 pg (28.0-32.0); Mean Corpuscular Volume 89.1 fL (80.0-100.0); Nucleated Red Blood Cells % 0.2 %
[2025-05-27 07:47] LABS: BUN/Creatinine Ratio 28.0 (10.0-20.0)
[2025-05-27 07:48] LABS: Blood Urea Nitrogen 28 mg/dL (9-23); Glucose 133 mg/dL (74-106); Magnesium 2.0 mg/dL (1.6-2.6)
[2025-05-27] MEDS: cefTRIAXone 1GM/50ML D5W 50 ML IV SCH (09:49)
[2025-05-27] MEDS: METOPROLOL TARTRATE 25 MG TAB PO SCH (09:53)
[2025-05-27] MEDS ORDERED: EMPAGLIFLOZIN 10 MG TAB PO SCH (10:00)
--- NOTE | 2025-05-27 10:50 | DVHPNRES ---
Progress Note Date Seen: May 27, 2025 Resident Creating Document: MIRANDA BACH RESIDENT Medical Necessity Reason Pt with a Central, PICC or Fol: No Subjective Review of Systems Sonja Cook is a 74-year-old female with past medical history of COPD, hypertension, hyperlipidemia, type 2 diabetes, asthma, and hypothyroidism presented to the ER with complaints of 4 hrs of sub-sternal chest pain 10/10, pressure like, which radiated to the left and right shoulders, associated with chest palpitations, lightheadedness, cold sweat and nausea. Also complained of associated shortness of breaths and difficulty breathing, which increase lying position. The patient reported that she had this pain before, on and off for the past week that improved with rest and aspiring 81 mg. The chest pain did not subside with aspirin, which prompted her visit to the ER. She denied fever, chills, syncope, vomit or other symptoms. On arrival, she had tachycardia, hypotension, tachypnea. Her initial labs show borderline increased calcium, total bilirubin, APTT. Her urine analysis is WNL and toxicology screen is negative. CXR shows cardiomegaly, moderate diffuse increased prominence of pulmonary vascular. EKG shows atrial fibrillation, left ventricular hypertrophy. Cardiac workup revealed normal troponin levels. She received three doses of IV Lopressor 5mg which improved her heart rate. ROS: Constitutional: Apparent distress, complained of chills. HEENT: Progressive reduction in vision. Respiratory: Shortness of breath and difficulty in breathing Cardiovascular: Chest pain, radiating to right shoulder GI: Complains of nausea, vomiting. Musculoskeletal: Denies myalgias and joint pain Skin: Denies rash and pruritus. Neurological: Denies dizziness, headache or hearing problems She was examined at bedside today. Hemodynamically stable. Reports her chest pain and difficulty in breathing has reduced now. Continues to complain of nausea. Cardiology on board. Awaiting echo report. We will do a wean off trial as she was not on home oxygen and continue to monitor and manage. Patient is Persian-speaking; the patient's sister helped with translation Objective vital signs Vital Sign Date Time Temp Pulse Resp B/P (MAP) Pulse Ox O2 Delivery O2 Flow Rate FiO2 05/27/25 09:53 82 120/72 05/27/25 09:00 97.9 18 96 97.9 05/27/25 06:01 Nasal Cannula 3.0 05/27/25 06:01 32 Total Intake and Output 05/26/25 05/26/25 05/27/25 15:00 23:00 07:00 Intake Total 0 ml 400 ml Output Total 300 ml Balance 0 ml 100 ml medications Current Medications Medications Dose Ordered Sig/Fahad Route Start Time Stop Time Status Last Admin Dose Admin Morphine Sulfate 2 mg Q4HPRN PRN IV 05/26/25 03:45 05/27/25 00:52 2 MG Furosemide 40 mg DAILY IV 05/26/25 10:00 05/27/25 09:52 40 MG Aspirin 81 mg DAILY PO 05/26/25 10:00 05/27/25 09:53 81 MG Atorvastatin Calcium 40 mg HS PO 05/26/25 22:00 05/26/25 21:25 40 MG Ondansetron HCl 4 mg Q4HR PRN IV 05/26/25 08:30 05/27/25 01:00 4 MG Ceftriaxone Sodium 50 ml @ 100 mls/hr DAILY@09 IV 05/27/25 09:00 05/27/25 09:49 100 MLS/HR Ipratropium [place] 0.5 mg Q6HWA NEB 05/26/25 12:00 05/27/25 06:01 0.5 MG Enoxaparin Sodium 140 mg Q12HR SC 05/26/25 22:00 05/27/25 09:52 140 MG Metoprolol Tartrate 25 mg BID PO 05/27/25 10:00 05/27/25 09:53 25 MG Examination General: Patient alert and oriented in person, place and time. Patient following commands. HEENT: Normocephalic, atraumatic, moist mucous membranes Respiratory/pulmonary: Bilateral lung crackles on auscultation. Cardiovascular: Distant heart sounds. Irregularly irregular Abdomen: Abdomen nondistended, there is no pain to palpation in any of the abdominal quadrants, no palpable masses. Extremities: Grade II peripheral edema, reduced from yesterday. Skin: No rashes or pruritus, there is no sacral edema present at this time. Neurological: Intact cranial nerves with no focal neurologic deficits laboratory and microbiology Laboratory Tests 05/27/25 07:00 Test 05/27/25 07:00 Range/Units Serum Glucose 133 H 74-106 mg/dL Labs and/or images reviewed: Labs reviewed by me, Image(s) reviewed by me Problem List/Assessment/Plan Problem List/Assessment/Plan Atrial Fibrillation with Rapid Ventricular Response (new onset); rate controlled * Telemetry * Continue Metoprolol IV * [id number] score: 3 * Continue Lovenox. Will discharge on DOAC, Chest Pain likely due to ACS NSTEMI type 2 Systolic/ Diastolic congestive heart failure, exacerbation, possible * Troponin WNL * Continue Aspirin * ECHO done * BNP no significant elevation * Cardiology on board, advised transthoracic echocardiogram to evaluate cardiac function, transition Lovenox to NOAC prior to discharge. Advised Beta-isabel for rate control, monitor and maintain potassium greater than four and magnesium greater than two Acute hypoxic respiratory failure due to Acute on chronic COPD exacerbation, possible Asthma exacerbation, possible * Influenza and COVID-19 tests negative * Continue Ceftriaxone & Azitromicyn IV * Continue Med neb * O2 supplementation. Will do a wean off trial. Essential Hypertension * Metoprolol IV Hyperlipidemia * Atorvastatin 40mg po Diabetes mellitus * Hyperglycemia OA * HbA1c * Will continue monitoring and managing History of Hypothyroidism * TSH WNL Morbid Obesity with BMI 60.6 * Lifestyle modification advised DIET: Cardiac DVT PROPHYLAXIS: Lovenox GI PROPHYLAXIS: Protonics CODE STATUS: Goals of care discussed with patient at bedside for 20 minutes. Full code DISPOSITION: Med/surge Patient's status and plan discussed with the patient. Case discussed with Dr. Kelsey Plan discussed with: Patient, Other (RN) Addendum Addendum Addendum I was physically present for the corral portions of the service provided to patient by THE RESIDENT. I have reviewed the documentation, discussed the case with resident and agree with the resident's documentation except as noted. Also the patient's clinical case was discussed with the patient's nurse. This medical document was created using an electronic medical record system with computerized dictation system. Although this document has been carefully reviewed, there might still be some phonetic and typographical errors. These areas are purely typographical due to imperfections of the software programs, and do not reflect any compromise in the patient's medical care. Late signature. Date of Service: May 27, 2025 Billing Provider: SHARMILA KELSEY MD Common Visit Codes: [id number] INP/OBS CARE(HIGH) Secondary Visit Codes: [id number] CARE PLAN 30 MINUTES (20 minutes) MIRANDA BACH RESIDENT May 27, 2025 10:50 SHARMILA KELSEY MD May 28, 2025 09:27
--- NOTE | 2025-05-27 17:38 | DVHPN2 ---
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 Objective vital signs Vital Sign Date Time Temp Pulse Resp B/P (MAP) Pulse Ox O2 Delivery O2 Flow Rate FiO2 05/27/25 17:02 98.1 77 18 113/75 (88) 94 98.1 05/27/25 12:26 Nasal Cannula 3.0 05/27/25 12:26 32 Total Intake and Output 05/26/25 05/26/25 05/27/25 15:00 23:00 07:00 Intake Total 0 ml 400 ml Output Total 300 ml Balance 0 ml 100 ml medications Current Medications Medications Dose Ordered Sig/Fahad Route Start Time Stop Time Status Last Admin Dose Admin Morphine Sulfate 2 mg Q4HPRN PRN IV 05/26/25 03:45 05/27/25 00:52 2 MG Furosemide 40 mg DAILY IV 05/26/25 10:00 05/27/25 09:52 40 MG Aspirin 81 mg DAILY PO 05/26/25 10:00 05/27/25 09:53 81 MG Atorvastatin Calcium 40 mg HS PO 05/26/25 22:00 05/26/25 21:25 40 MG Ondansetron HCl 4 mg Q4HR PRN IV 05/26/25 08:30 05/27/25 01:00 4 MG Ceftriaxone Sodium 50 ml @ 100 mls/hr DAILY@09 IV 05/27/25 09:00 05/27/25 09:49 100 MLS/HR Ipratropium [place] 0.5 mg Q6HWA NEB 05/26/25 12:00 05/27/25 12:26 0.5 MG Enoxaparin Sodium 140 mg Q12HR SC 05/26/25 22:00 05/27/25 09:52 140 MG Metoprolol Tartrate 25 mg BID PO 05/27/25 10:00 05/27/25 09:53 25 MG Examination: GENERAL:Normal, LUNGS:Normal, CVS:Abnormal (Atrial fibrillation), NEURO:Normal laboratory and microbiology Laboratory Tests 05/27/25 07:00 Test 05/27/25 07:00 Range/Units Serum Glucose 133 H 74-106 mg/dL Problem List/Assessment/Plan Problem List/Assessment/Plan Atrial fibrillation with rapid ventricular response, newly diagnosed Rule out structural heart disease Hypertension Dyslipidemia COPD with home O2 Type 2 diabetes mellitus Thyroid disease Morbid obesity Plan/Recommendations (Dr. Khan): * Transthoracic echocardiogram to evaluate cardiac function * ?[id number] VASc score: 5 points, HAS-BLED score: 1 point * Continue therapeutic Lovenox while inpatient, transition to NOAC prior to discharge * Beta-isabel for rate control * Avoid antiarrhythmic agent at this time given unknown duration of atrial fibrillation * Monitor and replete electrolytes as needed, keep potassium greater than four and magnesium greater than two * Close Cardiac surveillance At the time of assessment, the patient is not experiencing any cardiac symptoms. Thank you for allowing us to care for this patient. Please call with any questions or concerns. This medical document was created using an electronic medical record system with voice recognition software and computerized dictation system. Although this document has been carefully reviewed, there might still be some phonetic and typographical errors. Occasional wrong-word or ``sound-alike substitutions may have occurred due to the inherent limitations of voice recognition software. These areas are purely typographical due to imperfections of the software programs and do not reflect any compromise in the patient's medical care. Please read the chart carefully and recognize, using context, where these substitutions have occurred. Plan discussed with: Patient, Daughter Date of Service: May 27, 2025 Billing Provider: LUCRECIA BLUE Common Visit Codes: [id number] INP/OBS CARE(HIGH) LUCRECIA BLUE May 27, 2025 17:38
[2025-05-27] MEDS ORDERED: ATOR20TA50 PO (18:42)
[2025-05-27] MEDS ORDERED: CYA100I IM (18:47)
[2025-05-27] MEDS ORDERED: AML5T PO (18:47)
[2025-05-27] MEDS ORDERED: ALBU0.084 NEB (18:47)
[2025-05-27] MEDS ORDERED: LIDO5DIS21 TOP (18:47)
[2025-05-27] MEDS ORDERED: METF-372 PO (18:47)
[2025-05-27] MEDS ORDERED: METO-6 PO (18:47)
[2025-05-27] MEDS ORDERED: LOSA-535 PO (18:47)
[2025-05-27] MEDS ORDERED: MELO15TA29 PO (18:47)
[2025-05-27] MEDS ORDERED: METR-344 PO (18:47)
[2025-05-27] MEDS: DOCUSATE SOD 100 MG CAP PO ONE (21:21)
[2025-05-27] MEDS: ACETAMINOPHEN 325 MG TAB PO ONE (21:23)
[2025-05-28] VITALS (14 sets, daily range): BP systolic 102–130; BP diastolic 53–85; PULSE 52–166; RESP 18–22; TEMP 97.4–98.1; O2SAT 85–100
[2025-05-28] MEDS: ACETAMINOPHEN 325 MG TAB PO PRN (06:42)
[2025-05-28 06:46] LABS: Chloride 102 mmol/L (98-107); Potassium 4.2 mmol/L (3.5-5.1); Sodium 138 mmol/L (136-145)
[2025-05-28 06:47] LABS: Anion Gap 8 (5-15); Carbon Dioxide 28 mmol/L (20-31)
[2025-05-28 06:52] LABS: BUN/Creatinine Ratio 29.0 (10.0-20.0)
[2025-05-28 06:54] LABS: Blood Urea Nitrogen 27 mg/dL (9-23); Calcium 10.7 mg/dL (8.7-10.4); Glucose 154 mg/dL (74-106)
--- NOTE | 2025-05-28 13:25 | DVHSR ---
APPROVED REPORT EXAM: LIMITED Two-dimensional and M-mode echocardiogram with Doppler and color Doppler. Blood Pressure: 97/51 mmHg INDICATION history of chf RISK FACTORS Obesity: Height: 4'11, Weight: 300 DIMENSIONS LVDd3.5 (3.8-5.7cm)LA (2D)5.1 (1.9-4.0cm)Aortic Root (2.0-3.7cm) LVDs2.4 (2.5-4.0cm)LA (MM) (1.9-4.0cm)Aortic Cusp Exc (1.5-2.0cm) EF (%) 65.0 (55-70%)Rt. Atrium3.9 (1.9-4.0cm)Asc. Aorta cm IVSd1.8 (0.7-1.1cm)RV (D)5.5 (1.8-2.4cm) PWd1.6 (0.7-1.1cm) Mitral Valve MitralMitral Stenosis E wave0.81m/sMV Mean GR.1mmHg A wave0.01m/sMV Peak GR.96mmHg E/A ratio81.02D MVAcm2 DECEL [id number] 1/2 Timems Aortic Valve Aortic ValveAortic Stenosis V11.59m/Kev Mean GR.35mmHg V23.69m/Kev Peak GR.58mmHg LVOT Diameter2.0 (1.8-2.4cm)Doppler AVA1.35cm2 AI P 1/2 Vgeu0176.94ms Tricuspid Valve TR Velocity2.68m/s [id number] Other Information Quality : Technically LimitedRhythm : Technically limited study due to body habitus.patient position. Conclusion 1. MODERATE DEGREE LVH AND MODERATE DEGREE LV DIASTOLIC DYSFUNCTION 2. LV EF IS 65% AND IS NORMAL 3. DYSKINESIS OF IVS AND MODERATELY DILATED RV 4. VERY HEAVILY CALCIFIED AORTIC LEAFLETS PEAK GRADIENT ACROSS AORTIC VALVE IS IS 58 MM OF HG AND MEAN GRADIENT IS 34 MM OF HG AORTIC VALVE AREA IS 1.3 CM SQUARE IT IS MODERATE DEGREE AORTIC STENOSIS 5. MODERATE DEGREE PULMONARY HYPERTENSION RVSP IS 50 MM OF HG AND IS HIGH NO EFFUSION
[2025-05-28] MEDS: NITROGLYCERIN 0.4 MG SL TAB SL PRN (15:15)
--- NOTE | 2025-05-28 17:11 | DVHPNRES ---
Progress Note Date Seen: May 28, 2025 Resident Creating Document: MIRANDA BACH RESIDENT Medical Necessity Reason Pt with a Central, PICC or Fol: No Subjective Review of Systems Sonja Cook is a 74-year-old female with past medical history of COPD, hypertension, hyperlipidemia, type 2 diabetes, asthma, and hypothyroidism presented to the ER with complaints of 4 hrs of sub-sternal chest pain 10/10, pressure like, which radiated to the left and right shoulders, associated with chest palpitations, lightheadedness, cold sweat and nausea. Also complained of associated shortness of breaths and difficulty breathing, which increase lying position. The patient reported that she had this pain before, on and off for the past week that improved with rest and aspiring 81 mg. The chest pain did not subside with aspirin, which prompted her visit to the ER. She denied fever, chills, syncope, vomit or other symptoms. On arrival, she had tachycardia, hypotension, tachypnea. Her initial labs show borderline increased calcium, total bilirubin, APTT. Her urine analysis is WNL and toxicology screen is negative. CXR shows cardiomegaly, moderate diffuse increased prominence of pulmonary vascular. EKG shows atrial fibrillation, left ventricular hypertrophy. Cardiac workup revealed normal troponin levels. She received three doses of IV Lopressor 5mg which improved her heart rate. ROS: Constitutional: Apparent distress, complained of chills. HEENT: Progressive reduction in vision. Respiratory: Shortness of breath and difficulty in breathing Cardiovascular: Chest pain, radiating to right shoulder GI: Complains of nausea, vomiting. Musculoskeletal: Denies myalgias and joint pain Skin: Denies rash and pruritus. Neurological: Denies dizziness, headache or hearing problems She was examined at bedside today. Hemodynamically stable, on 2 L/min oxygen same as home oxygen. Reported feeling better today. Complained of peripheral neuropathy and constipation. We will try lactulose. She complained of chest pain, EKG obtained revealed atrial fibrillation. Cardiology on board. Objective vital signs Vital Sign Date Time Temp Pulse Resp B/P (MAP) Pulse Ox O2 Delivery O2 Flow Rate FiO2 05/28/25 16:15 113/72 05/28/25 13:00 97.4 90 22 92 97.4 05/28/25 11:28 Nasal Cannula 2.0 05/28/25 11:28 28 Total Intake and Output 05/27/25 05/27/25 05/28/25 15:00 23:00 07:00 Intake Total 50 ml 500 ml 1100 ml Balance 50 ml 500 ml 1100 ml medications Current Medications Medications Dose Ordered Sig/Fahad Route Start Time Stop Time Status Last Admin Dose Admin Morphine Sulfate 2 mg Q4HPRN PRN IV 05/26/25 03:45 05/27/25 00:52 2 MG Furosemide 40 mg DAILY IV 05/26/25 10:00 05/28/25 08:26 40 MG Aspirin 81 mg DAILY PO 05/26/25 10:00 05/28/25 08:26 81 MG Atorvastatin Calcium 40 mg HS PO 05/26/25 22:00 05/27/25 21:23 40 MG Ondansetron HCl 4 mg Q4HR PRN IV 05/26/25 08:30 05/27/25 01:00 4 MG Ceftriaxone Sodium 50 ml @ 100 mls/hr DAILY@09 IV 05/27/25 09:00 05/28/25 08:26 100 MLS/HR Ipratropium [place] 0.5 mg Q6HWA NEB 05/26/25 12:00 05/28/25 11:28 0.5 MG Enoxaparin Sodium 140 mg Q12HR SC 05/26/25 22:00 05/28/25 08:28 140 MG Metoprolol Tartrate 25 mg BID PO 05/27/25 10:00 05/28/25 08:27 25 MG Acetaminophen 650 mg Q4HP PRN PO 05/27/25 20:45 05/28/25 15:24 650 MG Nitroglycerin 0.4 mg Q5MINP PRN SL 05/28/25 11:30 05/28/25 15:15 0.4 MG Examination General: Patient alert and oriented in person, place and time. Patient following commands. HEENT: Normocephalic, atraumatic, moist mucous membranes Respiratory/pulmonary: Bilateral lung crackles on auscultation. Cardiovascular: Distant heart sounds. Irregularly irregular Abdomen: Abdomen nondistended, there is no pain to palpation in any of the abdominal quadrants, no palpable masses. Extremities: Grade II peripheral edema, reduced from yesterday. Skin: No rashes or pruritus, there is no sacral edema present at this time. Neurological: Intact cranial nerves with no focal neurologic deficits laboratory and microbiology Laboratory Tests 05/28/25 05:39 05/27/25 07:00 Test 05/28/25 05:39 Range/Units Serum Glucose 154 H 74-106 mg/dL Labs and/or images reviewed: Labs reviewed by me, Image(s) reviewed by me Problem List/Assessment/Plan Problem List/Assessment/Plan Atrial Fibrillation with Rapid Ventricular Response (new onset) * Telemetry * Continue Metoprolol IV * [id number] score: 3 * Continue Lovenox. Will discharge on DOAC, Chest Pain likely due to ACS NSTEMI type 2 Systolic/ Diastolic congestive heart failure, exacerbation, possible * Troponin levels WNL * Continue Aspirin * ECHO revealed LVEF 65%, LV dilated * BNP no significant elevation * Cardiology on board, advised transthoracic echocardiogram to evaluate cardiac function, transition Lovenox to NOAC prior to discharge. Advised Beta-isabel for rate control, monitor and maintain potassium greater than four and magnesium greater than two * EKG today reveals atrial fibrillation, cardiology on board. Acute hypoxic respiratory failure due to Acute on chronic COPD exacerbation, possible Asthma exacerbation, possible * Influenza and COVID-19 tests negative * Continue Ceftriaxone & Azithromycin IV * Continue Med neb * O2 supplementation. Essential Hypertension * Metoprolol IV Hyperlipidemia * Atorvastatin 40mg po Diabetes mellitus * Hyperglycemia OA * Will continue monitoring and managing History of Hypothyroidism Chronic constipation * TSH WNL * Lactulose given Morbid Obesity with BMI 60.6 * Lifestyle modification advised DIET: Cardiac DVT PROPHYLAXIS: Lovenox GI PROPHYLAXIS: Protonics CODE STATUS: Full code DISPOSITION: Telemetry Patient's status and plan discussed with the patient. Case discussed with Dr. Kelsey Plan discussed with: Patient, Other (RN) Addendum Addendum Addendum I was physically present for the corral portions of the service provided to patient by THE RESIDENT. I have reviewed the documentation, discussed the case with resident and agree with the resident's documentation except as noted. Also the patient's clinical case was discussed with the patient's nurse. This medical document was created using an electronic medical record system with computerized dictation system. Although this document has been carefully reviewed, there might still be some phonetic and typographical errors. These areas are purely typographical due to imperfections of the software programs, and do not reflect any compromise in the patient's medical care. Late signature. Date of Service: May 28, 2025 Billing Provider: SHARMILA KELSEY MD Common Visit Codes: [id number] INP/OBS CARE(HIGH) MIRANDA BACH RESIDENT May 28, 2025 17:11 SHARMILA KELSEY MD May 30, 2025 05:27
[2025-05-28] MEDS: LACTULOSE 20Gm/30ML SOLN PO SCH (17:37)
--- NOTE | 2025-05-28 19:25 | DVHPN2 ---
Subjective Remained AFib Complaint of intermittent chest pain on exertion Changes from previous H/P or p: No Changes Eyes: No Pain, No Vision change, No Conjunctivae inflammation, No Eyelid inflammation, No Other, No Redness ENT: No Ear pain, No Ear discharge, No Nose pain, No Nose discharge, No Nose congestion, No Mouth pain, No Mouth swelling, No Throat pain, No Throat swelling, No Other Cardiovascular: Chest Pain, Palpitations, Lt Headedness Respiratory: Shortness of breath Gastrointestinal: No Nausea, No Vomiting, No Abdominal Pain, No Diarrhea, No Constipation, No Melena, No Hematochezia, No Other Genitourinary: No Dysuria, No Frequency, No Incontinence, No Hematuria, No Retention, No Other Musculoskeletal: No other, No neck pain, No shoulder pain, No arm pain, No back pain, No hand pain, No leg pain, No foot pain Skin: No Rash, No Lesions, No Jaundice, No Bruising, No Other Objective Vitals Vital Signs Date Time Temp Pulse Resp B/P (MAP) Pulse Ox O2 Delivery O2 Flow Rate FiO2 05/28/25 18:33 55 18 100 05/28/25 18:28 Nasal Cannula* 2 28 05/28/25 17:08 97.6 113/72 (86) 97.6 Intake/Output Intake and Output 05/28/25 07:00 Intake Total 1650 ml Balance 1650 ml Intake Oral 1600 ml IV Total 50 ml # Voids 7 Medications Current Medications Medications Dose Ordered Sig/Fahad Route Start Time Stop Time Status Last Admin Dose Admin Morphine Sulfate 2 mg Q4HPRN PRN IV 05/26/25 03:45 05/27/25 00:52 2 MG Furosemide 40 mg DAILY IV 05/26/25 10:00 05/28/25 08:26 40 MG Aspirin 81 mg DAILY PO 05/26/25 10:00 05/28/25 08:26 81 MG Atorvastatin Calcium 40 mg HS PO 05/26/25 22:00 05/27/25 21:23 40 MG Ondansetron HCl 4 mg Q4HR PRN IV 05/26/25 08:30 05/27/25 01:00 4 MG Ceftriaxone Sodium 50 ml @ 100 mls/hr DAILY@09 IV 05/27/25 09:00 05/28/25 08:26 100 MLS/HR Ipratropium [place] 0.5 mg Q6HWA [facility] 05/26/25 12:00 05/28/25 18:28 0.5 MG Enoxaparin Sodium 140 mg Q12HR SC 05/26/25 22:00 05/28/25 08:28 140 MG Metoprolol Tartrate 25 mg BID PO 05/27/25 10:00 05/28/25 08:27 25 MG Acetaminophen 650 mg Q4HP PRN PO 05/27/25 20:45 05/28/25 15:24 650 MG Nitroglycerin 0.4 mg Q5MINP PRN SL 05/28/25 11:30 05/28/25 15:15 0.4 MG Lactulose 30 ml DAILY PO 05/28/25 17:15 05/28/25 17:37 30 ML Laboratory Results Laboratory Tests 05/27/25 07:00 05/28/25 05:39 Chemistry Test 05/28/25 05:39 Calcium Level 10.7 mg/dL (8.7-10.4) H Urinalysis Test 05/26/25 05:00 Urine Color Yellow (Yellow) Urine Clarity Clear (Clear) Urine pH 6.0 (5.0-9.0) Urine Specific [place] 1.009 (1.001-1.035) Urine Protein 1+ (Negative) H Urine Ketones Negative (Negative) Urine Blood Negative /uL (Negative) Urine Nitrite Negative (Negative) Urine Bilirubin Negative (Negative) Urine Urobilinogen Normal mg/dL (Negative) Urine Leukocyte Esterase Negative /uL (Negative) Urine RBC None seen /hpf (0 - 4) Urine Microscopic WBC 1 /HPF (0-5) Urine Squamous Epithelial Cells Few /hpf (<5) Urine Bacteria None seen /hpf (None Seen) Urine Glucose Normal mg/dL (Normal) Assessment/Plan Assessment/Plan Atrial fibrillation with rapid ventricular response, newly diagnosed Rule out structural heart disease Hypertension Dyslipidemia COPD with home O2 Type 2 diabetes mellitus Thyroid disease Morbid obesity Plan/Recommendations (Dr. Khan): * Transthoracic echocardiogram revealed EF 65%, moderate pulmonary hypertension, heavily calcified aortic leaflets * ?[id number] VASc score: 5 points, HAS-BLED score: 1 point * Continue therapeutic Lovenox while inpatient, transition to NOAC prior to discharge * Beta-isabel for rate control * Avoid antiarrhythmic agent at this time given unknown duration of atrial fibrillation * Monitor and replete electrolytes as needed, keep potassium greater than four and magnesium greater than two * Close Cardiac surveillance At the time of assessment, the patient is not experiencing any cardiac symptoms. Thank you for allowing us to care for this patient. Please call with any questions or concerns. This medical document was created using an electronic medical record system with voice recognition software and computerized dictation system. Although this document has been carefully reviewed, there might still be some phonetic and typographical errors. Occasional wrong-word or ``sound-alike substitutions may have occurred due to the inherent limitations of voice recognition software. These areas are purely typographical due to imperfections of the software programs and do not reflect any compromise in the patient's medical care. Please read the chart carefully and recognize, using context, where these substitutions have occurred. Plan discussed with: Patient, Daughter Plan discussed with: Patient Date of Service: May 28, 2025 Billing Provider: HARSHA GUERRERO MD Common Visit Codes: CONSULT ONLY Consultation Codes: [id number] CONSULT <45MIN YUAN PELAYO [facility] May 28, 2025 19:25
--- NOTE | 2025-05-28 23:36 | DVHPN2 ---
Consult Progress Note Date Seen: May 28, 2025 Subjective Other Systems: Patient was seen and evaluated in follow up. Patient remains in [facility] ekg monitor. Patent complains of intermittent chest pain upon exertion. Telemetry reviewed. Objective vital signs Vital Sign Date Time Temp Pulse Resp B/P (MAP) Pulse Ox O2 Delivery O2 Flow Rate FiO2 05/28/25 20:53 166 05/28/25 20:50 19 123/70 05/28/25 18:33 100 05/28/25 18:28 Nasal Cannula* 2 28 05/28/25 17:08 97.6 97.6 Total Intake and Output 05/27/25 05/27/25 05/28/25 15:00 23:00 07:00 Intake Total 50 ml 500 ml 1100 ml Balance 50 ml 500 ml 1100 ml medications Current Medications Medications Dose Ordered Sig/Fahad Route Start Time Stop Time Status Last Admin Dose Admin Morphine Sulfate 2 mg Q4HPRN PRN IV 05/26/25 03:45 05/28/25 20:50 2 MG Furosemide 40 mg DAILY IV 05/26/25 10:00 05/28/25 08:26 40 MG Aspirin 81 mg DAILY PO 05/26/25 10:00 05/28/25 08:26 81 MG Atorvastatin Calcium 40 mg HS PO 05/26/25 22:00 05/28/25 20:53 40 MG Ondansetron HCl 4 mg Q4HR PRN IV 05/26/25 08:30 05/28/25 20:49 4 MG Ceftriaxone Sodium 50 ml @ 100 mls/hr DAILY@09 IV 05/27/25 09:00 05/28/25 08:26 100 MLS/HR Ipratropium [place] 0.5 mg Q6HWA NEB 05/26/25 12:00 05/28/25 18:28 0.5 MG Enoxaparin Sodium 140 mg Q12HR SC 05/26/25 22:00 05/28/25 20:53 140 MG Metoprolol Tartrate 25 mg BID PO 05/27/25 10:00 05/28/25 20:53 25 MG Acetaminophen 650 mg Q4HP PRN PO 05/27/25 20:45 05/28/25 19:43 650 MG Nitroglycerin 0.4 mg Q5MINP PRN SL 05/28/25 11:30 05/28/25 15:15 0.4 MG Lactulose 30 ml DAILY PO 05/28/25 17:15 05/28/25 17:37 30 ML Examination: GENERAL:Normal, HEENT:Normal, NECK:Normal, LUNGS:Normal, LUNGS:Abnormal, CVS:Abnormal, ABDOMEN:Normal, MSK:Normal, SKIN:Normal, NEURO:Normal laboratory and microbiology Laboratory Tests 05/28/25 05:39 05/27/25 07:00 Test 05/28/25 05:39 Range/Units Serum Glucose 154 H 74-106 mg/dL Problem List/Assessment/Plan Problem List/Assessment/Plan Assessment/Plan Atrial fibrillation with rapid ventricular response, newly diagnosed. Rule out structural heart disease. Hypertension. Dyslipidemia. COPD with home O2. Type 2 diabetes mellitus. Thyroid disease. Morbid obesity. Plan/Recommendations Continued all current supportive medical care. Patient has been seen by Kelli Choi NP on my behalf, her and I discussed the plan with the patient. Transthoracic echocardiogram revealed EF 65%, moderate pulmonary hypertension, heavily calcified aortic leaflets. ?[id number] VASc score: 5 points, HAS-BLED score: 1 point. Continue therapeutic Lovenox while inpatient, transition to NOAC prior to discharge. Beta-isabel for rate control. Avoid antiarrhythmic agent at this time given unknown duration of atrial fibrillation. Monitor and replete electrolytes as needed, keep potassium greater than four and magnesium greater than two. Close Cardiac surveillance. Additional plan as per the hospital course. Plan discussed with: Patient Date of Service: May 28, 2025 Billing Provider: HARSHA GUERRERO MD Cardiology Common Codes: [id number] INP/OBS CARE (High) Cardiology Consultation Codes: [id number] CONSULT <45MIN HARSHA GUERRERO MD May 28, 2025 22:29
[2025-05-29] VITALS (12 sets, daily range): BP systolic 128–145; BP diastolic 67–83; PULSE 69–148; RESP 18–19; TEMP 97.3–98.8; O2SAT 84–98
[2025-05-29] MEDS: METOPROLOL TARTRATE 25 MG TAB PO ONE (00:13)
[2025-05-29] MEDS: METOPROLOL TARTRATE 1MG/1ML-5ML VIAL IV ONE (00:13)
[2025-05-29] MEDS: METOPROLOL TARTRATE 25 MG TAB PO SCH (09:51)
[2025-05-29] MEDS: PANTOPRAZOLE 40 MG/10 ML VIAL INJ IV ONE (09:59)
[2025-05-29] MEDS: KETOROLAC TROMETH 30 MG/ML 1ML VIAL IV ONE (10:00)
[2025-05-29] MEDS ORDERED: LEVALBUTEROL HCL 1.25 MG/3 ML NEB ONE (11:27)
[2025-05-29] MEDS ORDERED: METO1TAB9 PO (12:11)
[2025-05-29] MEDS ORDERED: IBUP1TAB5 PO (12:11)
[2025-05-29] MEDS ORDERED: PANT40TA2 PO (12:11)
[2025-05-29] MEDS ORDERED: APIX5TAB PO (12:11)
[2025-05-29] MEDS ORDERED: EMPA1TAB PO (12:11)
--- NOTE | 2025-05-29 15:38 | DVHDSRES ---
Discharge Summary Date of Admission Resident Creating Document: MIRANDA BACH RESIDENT May 26, 2025 at 03:44 Date of Discharge: May 29, 2025 Admitting Diagnosis Chest pain Labs/Diagnostic Data: Laboratory Results Test 05/28/25 19:37 05/28/25 05:39 05/27/25 13:20 05/27/25 07:00 Troponin I High Sensitivity 23 ng/L (</=34) Sodium Level 138 mmol/L (136-145) Potassium Level 4.2 mmol/L (3.5-5.1) Chloride Level 102 mmol/L (98-107) Carbon Dioxide Level 28 mmol/L (20-31) Anion Gap 8 (5-15) Blood Urea Nitrogen 27 mg/dL (9-23) Creatinine 0.93 mg/dL (0.550-1.02) Glomerular Filtration Rate Calc 64 mL/min (>90) BUN/Creatinine Ratio 29.0 (10.0-20.0) Serum Glucose 154 mg/dL (74-106) Calcium Level 10.7 mg/dL (8.7-10.4) Hemoglobin A1c 6.5 % A1C (<5.7) White Blood Count 6.4 10^3/uL (4.4-10.8) Red Blood Count 4.54 10^6/uL (4.0-5.20) Hemoglobin 13.7 g/dL (12.2-16.2) Hematocrit 40.5 % (36.0-46.0) Mean Corpuscular Volume 89.1 fL (80.0-100.0) Mean Corpuscular Hemoglobin 30.1 pg (28.0-32.0) Mean Corpuscular Hemoglobin Concent 33.8 g/dL (32.0-36.0) Red Cell Distribution Width 14.4 % (11.8-14.3) Platelet Count 202 10^3/uL (140-450) Mean Platelet Volume 9.8 fL (6.9-10.8) Neutrophils (%) (Auto) 56.8 % (37.0-80.0) Lymphocytes (%) (Auto) 29.1 % (10.0-50.0) Monocytes (%) (Auto) 11.0 % (0.0-12.0) Eosinophils (%) (Auto) 2.7 % (0.0-7.0) Basophils (%) (Auto) 0.4 % (0.0-2.0) Neutrophils # (Auto) 3.7 10 ^3/uL (1.6-8.6) Lymphocytes # (Auto) 1.9 10 ^3/uL (0.4-5.4) Monocytes # (Auto) 0.7 10 ^3/uL (0-1.3) Eosinophils # (Auto) 0.2 10 ^3/uL (0-0.8) Basophils # (Auto) 0 10 ^3/uL (0-0.2) Nucleated Red Blood Cells 0.2 % Magnesium Level 2.0 mg/dL (1.6-2.6) Test 05/26/25 07:45 05/26/25 06:27 05/26/25 05:00 05/26/25 00:19 Influenza Type A Antigen Negative (Negative) Influenza Type B Antigen Negative (Negative) SARS-CoV-2 Antigen (Rapid) Negative (NEGATIVE) POC Glucose 158 mg/dl (70-106) Urine Color Yellow (Yellow) Urine Clarity Clear (Clear) Urine pH 6.0 (5.0-9.0) Urine Specific Arthur 1.009 (1.001-1.035) Urine Protein 1+ (Negative) Urine Ketones Negative (Negative) Urine Blood Negative /uL (Negative) Urine Nitrite Negative (Negative) Urine Bilirubin Negative (Negative) Urine Urobilinogen Normal mg/dL (Negative) Urine Leukocyte Esterase Negative /uL (Negative) Urine RBC None seen /hpf (0 - 4) Urine Microscopic WBC 1 /HPF (0-5) Urine Squamous Epithelial Cells Few /hpf (<5) Urine Bacteria None seen /hpf (None Seen) Urine Glucose Normal mg/dL (Normal) Urine Opiates Screen Neg (NEGATIVE) Urine Fentanyl Screen Neg (NEGATIVE) Urine Barbiturates Screen Neg (NEGATIVE) Urine Phencyclidine Screen Neg (NEGATIVE) Urine Amphetamines Screen Neg (NEGATIVE) Urine Benzodiazepines Screen Neg (NEGATIVE) Urine Cocaine Screen Neg (NEGATIVE) Urine Cannabinoids Screen Neg (NEGATIVE) Prothrombin Time 10.8 sec (9.3-11.8) Prothrombin Time INR 1.02 (0.9-1.15) Activated Partial Thromboplast Time 35.3 SEC (24.5-34.5) Total Bilirubin 1.1 mg/dL (0.2-1.0) Aspartate Amino Transferase (AST) 21 U/L (13-40) Alanine Aminotransferase (ALT) < 9 U/L (7-40) Alkaline Phosphatase 110 U/L (46-116) B-Type Natriuretic Peptide 131.81 pg/mL (0-100) Total Protein 7.5 g/dL (5.7-8.2) Albumin 4.6 g/dL (3.2-4.8) Triglycerides Level 121 mg/dL (< 150) Cholesterol Level 129 mg/dL (< 200) LDL Cholesterol 57 mg/dL (< 100) HDL Cholesterol 57 mg/dL (40-59) Thyroid Stimulating Hormone (TSH) 1.17 uIU/mL (0.55-4.78) Other Laboratory Tests 05/28/25 05:39 05/27/25 07:00 Brief Hx & Hospital Course: HISTORY OF PRESENT ILLNESS: Sonja Cook is a 74-year-old female with past medical history of COPD, hypertension, hyperlipidemia, type 2 diabetes, asthma, and hypothyroidism presented to the ER with complaints of 4 hrs of sub-sternal chest pain 10/10, pressure like, which radiated to the left and right shoulders, associated with chest palpitations, lightheadedness, cold sweat and nausea. Also complained of associated shortness of breaths and difficulty breathing, which increase lying position. The patient reported that she had this pain before, on and off for the past week that improved with rest and aspiring 81 mg. The chest pain did not subside with aspirin, which prompted her visit to the ER. She denied fever, chills, syncope, vomit or other symptoms. On arrival, she had tachycardia, hypotension, tachypnea. Her initial labs show borderline increased calcium, total bilirubin, APTT. Her urine analysis is WNL and toxicology screen is negative. CXR shows cardiomegaly, moderate diffuse increased prominence of pulmonary vascular. EKG shows atrial fibrillation, left ventricular hypertrophy. Cardiac workup revealed normal troponin levels. She received three doses of IV Lopressor 5mg which improved her heart rate. HOSPITAL COURSE: Patient was admitted at the line of acute on chronic respiratory failure, likely due to COPD exacerbation/systolic heart failure exacerbation. Patient was started on empiric antibiotic of Rocephin and azithromycin, breathing treatment, given IV diuretic Lasix 40 mg daily. EKGs showed AFib with RVR, upon admission in ER the patient was given 3 doses of IV metoprolol 5 mg we subsequently shifted to oral metoprolol, chads Vasc score was 3 and the patient was given therapeutic dose of Lovenox. Echocardiogram performed, showed moderate degree LVH with mild daily daily LV diastolic dysfunction with ER 65%, dyskinesia of interval dose of dose of moderately dilated RV., cardiology consulted, recommended medical management. Due to respiratory failure, oxygen was given through nasal cannula. During hospital admission question was also given aspirin and atorvastatin. On 05/29/2024, the patient was feeling better since admission. The patient was able to maintain oxygen saturation we will 2 L of oxygen (home oxygen). Discharge plan discussed with the patient and the patient discharged home. Physical examination on the day of discharge General Appearance: Alert, Oriented X3, Cooperative, No acute distress HEENT: Atraumatic, PERRLA, EOMI, Mucous membrane moist/pink Respiratory: Clear to auscultation, Normal air movement Cardiovascular: Irregularly irregular, Normal S1, Normal S2, No murmurs, no chest wall tenderness Abdominal: Normal bowel sounds, Soft, No tenderness, No hepatosplenomegaly, No masses Extremities: No clubbing, No cyanosis, No edema, Normal pulses, No tenderness/swelling Skin: No rashes, No breakdown, No significant lesion Neuro: Normal gait, Normal speech, Strength at 5/5 X4 ext, Normal tone, Sensation intact, Cranial nerves 3-12 NL, Reflexes 2+ Psych/Mental Status: Mental status NL, Mood NL DISCHARGE PLAN: Follow up with the PCP within 1 week of the discharge. Follow up with Cardiology on outpatient basis Eliquis 5 mg twice daily Metoprolol succinate 100 mg once daily Jardiance 10 mg daily Continue home meds FINAL DIAGNOSIS: Acute on chronic respiratory failure, likely due to COPD exacerbation/ CHF exacerbation; has home oxygen COPD exacerbation Acute on chronic CHF exacerbation AFib with RVR Acquired hypercoagulability ACS likely type 2 due to above Possible asthma exacerbation Essential hypertension Dyslipidemia Diabetes type 2 History of hypothyroidism Morbid obesity Ruled out structural heart disease Discussed with Dr. Kelsey Consults/Reason for consult Cardiology for chest pain Condition at Discharge: Stable Final Diagnosis/Problems List Chest pain due to AFib with RVR AFib with RVR Acute on chronic hypoxic respiratory failure due to acute CHF exacerbation Rest of diagnoses as above Discharge Disposition: Home (On home oxygen; already has oxygen at home) Discharge Instruct/Medications Diet: Consistent carbohydrate, Cardiac 2g Na,low cholest Activity: No Restrictions, As Tolerated Follow Up/Referral: Follow up with the PCP within 1 week of the discharge. Follow up with the Cardiology outpatient basis. Medications: Eliquis 5 mg twice daily Metoprolol 100 mg daily Jardiance 10 mg daily Continue home meds Scheduled Albuterol Sulfate (Albuterol Sulfate), 1 VIAL NEB Q4HPRN, (Reported) Amlodipine Besylate (Norvasc Tablet), 1 TAB PO BID, (Reported) Apixaban Base (Eliquis), 5 MG PO BID Aspirin (Aspirin Low Dose), 1 TAB PO DAILY, (Reported) Atorvastatin Calcium (Atorvastatin Calcium), 1 TAB PO DAILY, (Reported) Empagliflozin (Jardiance), 10 MG PO DAILY Ibuprofen Micronized (Ibuprofen), 600 MG PO TID Lidocaine (Lidoderm 5% Topical Patch), 1 PATCH TOP DAILY, (Reported) Losartan Potassium (Losartan Potassium), 1 TAB PO DAILY, (Reported) Meloxicam (Meloxicam), 1 TAB PO DAILY, (Reported) Metformin Hydrochloride (Metformin Hcl), 1 TAB PO BID, (Reported) Metoprolol Succinate (Metoprolol Succinate Er), 100 MG PO DAILY Pantoprazole Sodium Sesquihydr (Protonix), 40 MG PO DAILY Miscellaneous Medications Vitamin B12 (Vitamin B-12), 2,000 MCG IM, (Reported) Discontinued Medications Metformin Hydrochloride (Metformin Hcl), 1 TAB PO BID, (Reported) Metoprolol Succinate (Metoprolol Succinate Er), 1 TAB PO DAILY, (Reported) Metoprolol Succinate (Toprol Xl), 1 TAB PO DAILY, (Reported) Metronidazole (Flagyl), 1 TAB PO TID, (Reported) Tramadol Hcl (Tramadol Hcl), 50 MG PO, (Reported) Discharge Statement: "Patient was advised to return to the ER or call 911 if any headaches, dizziness, shortness of breath, chest pain, abdominal pain, bleeding, fevers, or worsening of medical condition. Patient was counseled about treatment plan, medications, possible side effects, patientverbalized understanding. All questions were answered to the best of my ability. This discharge took greater then 30 minutes in planning, reviewing documentation, counseling the patient, and discussing with other team members." ASSESSMENT ASSESSMENT Assessment Acute Hypoxic Respiratory Failure Addendum Addendum Addendum I was physically present for the corral portions of the service provided to patient by THE RESIDENT. I have reviewed the documentation, discussed the case with resident and agree with the resident's documentation except as noted. Also the patient's clinical case was discussed with the patient's nurse. This medical document was created using an electronic medical record system with computerized dictation system. Although this document has been carefully reviewed, there might still be some phonetic and typographical errors. These areas are purely typographical due to imperfections of the software programs, and do not reflect any compromise in the patient's medical care. Late signature. Date of Service: May 29, 2025 Billing Provider: SHARMILA KELSEY MD Common Visit Codes: 83745-OZA/OBS DISCH DAY >30min ANDRIA KHAN RESDIENT May 29, 2025 15:38 SHARMILA KELSEY MD May 30, 2025 05:31
--- NOTE | 2025-05-29 23:50 | DVHPN2 ---
Progress Note - Dictate Date Seen: May 29, 2025 Medical Necessity Reason Pt with a Central, PICC or Fol: No Subjective Patient was seen and evaluated in follow up. Patient has no new complaints at this time. Patient denies any cardiac symptoms. Patient is cardiac stable for discharge. Telemetry reviewed. vital signs Vital Sign Date Time Temp Pulse Resp B/P (MAP) Pulse Ox O2 Delivery O2 Flow Rate FiO2 05/29/25 14:05 97.3 72 19 90 05/29/25 13:00 145/73 (97) 05/29/25 11:10 Nasal Cannula* 2 28 Total Intake and Output 05/28/25 05/28/25 05/29/25 15:00 23:00 07:00 Intake Total 50 ml 1140 ml 2400 ml Balance 50 ml 1140 ml 2400 ml objective GENERAL: Alert and oriented x 3. No acute distress. EYES: PERRL, EOMI. Anicteric. HENT: Moist mucous membranes. LUNGS: Clear to auscultation bilaterally. CARDIOVASCULAR: Regular rate and rhythm. ABDOMEN: Soft, nontender and nondistended. EXTREMITIES: No edema. NEUROLOGIC: No focal neurological deficits. SKIN: Warm, dry. laboratory and microbiology Laboratory Tests 05/28/25 05:39 05/27/25 07:00 Test 05/28/25 05:39 Range/Units Serum Glucose 154 H 74-106 mg/dL Problem List Atrial fibrillation with rapid ventricular response, newly diagnosed. Rule out structural heart disease. Hypertension. Dyslipidemia. COPD with home O2. Type 2 diabetes mellitus. Thyroid disease. Morbid obesity. Assessment/Plan Continued all current supportive medical care. Aspirin, Metoprolol. Diuretics with Lasix. DVT and GI prophylactics. Metoprolol. Toradol for pain management. Additional plan as per the hospital course. Plan discussed with: Patient HARSHA GUERRERO MD May 29, 2025 16:24
--- NOTE | 2025-05-30 07:53 | ECG ---
[facility] Test Date: 2025-05-28 Test Time: 13:36:21 Pat Name: JEANCARLOS SHARP Department: Respiratoy Room: 0218T B Gender: F Twister Doffer: : 1950 Requested By: SHARMILA KELSEY Order Number: [id number] Reading MD: Anthony Khan Measurements Intervals [place] Rate: 119 P: 0 PA: 0 QRS: -5 QRSD: 84 T: 145 QT: 295 QTc: 416 Interpretive Statements Atrial fibrillation Ventricular premature complex Abnormal R-wave progression, late transition LVH with secondary repolarization abnormality Baseline wander in lead(s) I,V1,V2,V3,V5 Electronically Signed On 05-30-2025 21:41:41 PDT by Anthony Khan Please click the below link to view image of tracing.
--- NOTE | 2025-05-30 07:53 | ECG ---
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
--- NOTE | 2025-05-30 08:49 | ECG ---
[facility] Test Date: 2025-05-26 Test Time: 00:04:22 Pat Name: JEANCARLOS SHARP Department: ER Room: 0218T B Gender: F Datastage Consultant: ROCCO : 1950 Requested By: GEREMIAS BALDWIN Order Number: [id number] Reading MD: Anthony Khan Measurements Intervals [place] Rate: 138 P: 0 [place]: 0 QRS: -3 QRSD: 85 T: 128 QT: 302 QTc: 458 Interpretive Statements Atrial fibrillation LVH with secondary repolarization abnormality Electronically Signed On 05-30-2025 21:55:11 PDT by Anthony Khan Please click the below link to view image of tracing.
--- NOTE | 2025-05-30 20:33 | ECG ---
[facility] Test Date: 2025-05-26 Test Time: 12:30:40 Pat Name: JEANCARLOS SHARP Department: [facility] ED Patient ID[facility]-[id number] Room: 0218T B Gender: F Electrical Tryout Person: NICHELLE : 1950 Requested By: LUCRECIA BLUE Order Number: [id number] Reading MD: Anthony Khan Measurements Intervals [place] Rate: 98 P: 0 [place]: 0 QRS: 2 QRSD: 88 T: 133 QT: 344 QTc: 440 Interpretive Statements Atrial fibrillation LVH with secondary repolarization abnormality Electronically Signed On 05-30-2025 21:56:56 PDT by Anthony Khan Please click the below link to view image of tracing.
--- NOTE | 2025-05-31 07:33 | ECG ---
[facility] Test Date: 2025-05-28 Test Time: 15:02:49 Pat Name: JEANCARLOS SHARP Department: Respiratoy Room: 0218T B Gender: F Ice Bag Assembler: MARZENA : 1950 Requested By: MIRANDA BACH Order Number: [id number] Reading MD: Anthony Khan Measurements Intervals [place] Rate: 137 P: 0 [place]: 0 QRS: -1 QRSD: 89 T: 135 QT: 298 QTc: 450 Interpretive Statements Atrial fibrillation Abnormal R-wave progression, late transition LVH with secondary repolarization abnormality Electronically Signed On 06-06-2025 18:30:42 PDT by Anthony Khan Please click the below link to view image of tracing.
== END 2025-05-29 15:32 | disposition home or self-care (01) | DRG 280 ==
LOC: ER 23:59 → OVERFLOW 05-26 03:44 → TELE-CENTR 05-26 14:30
PROVIDERS: ADMIT Internal Medicine; ATTEND Internal Medicine
DX: I11.0 Hypertensive heart disease with heart failure (principal); I50.33 Acute on chronic diastolic (congestive) heart failure; I21.A1 Myocardial infarction type 2; J96.21 Acute and chronic respiratory failure with hypoxia; D68.59 Other primary thrombophilia; J44.1 Chronic obstructive pulmonary disease with (acute) exacerbation; J45.901 Unspecified asthma with (acute) exacerbation; Z68.44 Body mass index [BMI] 60.0-69.9, adult; I48.91 Unspecified atrial fibrillation; E66.01 Morbid (severe) obesity due to excess calories; E78.00 Pure hypercholesterolemia, unspecified; E11.65 Type 2 diabetes mellitus with hyperglycemia; M81.0 Age-related osteoporosis without current pathological fracture; Z20.822 Contact with and (suspected) exposure to COVID-19; K59.09 Other constipation; I27.20 Pulmonary hypertension, unspecified; Z90.710 Acquired absence of both cervix and uterus; Z79.899 Other long term (current) drug therapy
CPT/HCPCS: 36415; 71045; 80048; 80053; 80061; 80307; 81001; 82962; 83036; 83735; 83880; 84443; 84484; 85025; 85610; 85730; 87426; 87804; 93005; 93306; 94640; 96365; 96372; 96375; G0378; J1885; J2405; J2470